=== PATIENT | female | born 1955 | race Caucasian/White ===

== ENCOUNTER 2023-11-09 15:00 | Outpatient (RCR) | payer MEDICARE, SELFPAY | END 2023-12-08 08:20 | disposition home or self-care (01) | LOC: HO.PTCHIC 15:00 | PROVIDERS: PCP Internal Medicine; Visit Provider Internal Medicine | DX: M05.79 Rheumatoid arthritis with rheumatoid factor of multiple sites without organ or systems involvement (principal) | CPT/HCPCS: 97110; 97112; 97162 ==

== ENCOUNTER 2025-05-29 09:48 | Inpatient (IN) | payer MEDICARE, SELFPAY ==
--- NOTE | ~2025-05-29 | XR_ITS ---
EXAMINATION: XR CHEST CLINICAL INFORMATION: pneumonia COMPARISON: X-ray 08/30/2024 TECHNIQUE: Frontal view of the chest was obtained. FINDINGS: Cardiomediastinal silhouette is normal. Redemonstrated hiatal hernia. Multifocal patchy opacities in the left lung, improved from previous. No significant effusion. No pneumothorax. Multilevel thoracolumbar spondylosis. XR/XR chest 1V IMPRESSION: Improving multifocal pneumonia. Electronically signed by: Angel Coronel MD 06/01/2025 07:53 AM EST
--- NOTE | ~2025-05-29 | XR_ITS ---
EXAMINATION: XR CHEST CLINICAL INFORMATION: hypoxia COMPARISON: May 29, 2025. TECHNIQUE: Frontal view of the chest was obtained. FINDINGS: Pulmonary reticular nodular pattern with the multifocal patchy opacities confluent in the left lung. No pneumothorax. No gross perfusion. Heart silhouette size is normal with a hiatal hernia, moderate size. Multilevel thoracolumbar spondylosis. Degenerative changes in the shoulders. XR/XR chest 1V IMPRESSION: Persistent multifocal pneumonia. Electronically signed by: Remington Barrios MD 05/30/2025 10:28 AM [facility]
--- NOTE | ~2025-05-29 | CT_ITS ---
EXAMINATION: CT ANGIOGRAM CHEST CLINICAL INFORMATION: left pleuritic chest pain, elevated dimer COMPARISON: September 21, 2018 TECHNIQUE: Multiple axial images were obtained through the chest after the administration of 85 mL of Omnipaque 350 intravenous contrast. Extensive vascular post-processing including two-dimensional and three-dimensional reformatted images were created and reviewed on an independent workstation. This CT examination was performed using dose optimization techniques as appropriate, variously including the following: *Automated exposure control *Adjustment of mA and/or kV according to patient size (this includes techniques or standardized protocols for targeted exams where dose is matched to indication/reason for exam; i.e. extremities or head) *Use of iterative reconstruction technique FINDINGS: QUALITY OF STUDY/CONTRAST BOLUS: Adequate PULMONARY ARTERIES: No filling defects are identified in the pulmonary arteries. THORACIC AORTA: Mild calcification is present in the arch. There is no dissection or aneurysm. LUNGS AND PLEURA: There are mild changes of emphysema. The left lung demonstrates interlobular septal thickening as well as diffuse patchy airspace opacities throughout the left lung. The right lung demonstrates groundglass density in the dependent right lower lobe posteriorly consistent with atelectasis. However, there are also a few areas of reticular and airspace patchy opacities in the right lower lobe and minimally within the right middle lobe, anteriorly. Trace left pleural effusion or pleural thickening is present. MEDIASTINUM: Sliding hiatal hernia has increased in size and now involves the entire stomach fundus and a small portion of the stomach body. CORONARY ARTERY CALCIFICATION: Present CHEST WALL/AXILLA: No axillary or internal mammary lymphadenopathy. UPPER ABDOMEN: Unremarkable BONES: Mild multilevel degenerative changes are present in the imaged spine. There is a vertebral hemangioma within T10. There are moderate degenerative changes of the sternoclavicular joints. CT/CT angio chest PE protocol IMPRESSION: Multifocal pneumonia is most pronounced throughout the left lung with mild involvement of the right lower lobe and minimal involvement of the right middle lobe. There is a small left parapneumonic effusion. There are no filling defects to suggest underlying pulmonary embolus. There is a moderate size sliding hiatal hernia. Fleischner guidelines were followed. Electronically signed by: Gulshan Andrews MD 05/29/2025 02:21 PM [facility]
--- NOTE | ~2025-05-29 | XR_ITS ---
EXAMINATION: XR ABDOMEN KUB CLINICAL INDICATION: ?constipation on chronic opioids COMPARISON: None available. TECHNIQUE: AP supine view of the abdomen. FINDINGS: Nonobstructive bowel gas pattern. Small-moderate volume stool in the colon. No gross pneumoperitoneum, dilation limited on the supine view. Curvilinear calcification projected over the lateral aspect of right upper abdomen in the left upper abdomen, of uncertain etiology. Calcific densities projected the pelvis, appearing chronic. There are radiodense densities projected over the pelvis, which may be overlying the patient. Dextroconvex scoliosis. Multilevel thoracolumbar spondylosis. XR/XR KUB IMPRESSION: Nonobstructive bowel gas pattern. Small-moderate colonic stool burden. Multiple calcifications project over the abdomen, as detailed above. Electronically signed by: Angel Coronel MD 05/29/2025 11:51 AM [facility]
--- NOTE | ~2025-05-29 | XR_ITS ---
EXAMINATION: XR CHEST CLINICAL INFORMATION: hypoxic COMPARISON: August 16, 2018. TECHNIQUE: PA and lateral views FINDINGS: Pulmonary reticular nodular pattern. Linear and patchy opacity, left hemithorax. Blunting of the left costophrenic angle. No pneumothorax. Cardiomediastinal silhouette size is mildly prominent. Calcified plaque aortic arch. Multilevel spondylosis, thoracolumbar spine.. XR/XR chest 2V IMPRESSION: Acute on chronic airspace disease. Superimposed malignancy cannot be excluded. Electronically signed by: Remington Barrios MD 05/29/2025 11:04 AM [facility]
--- NOTE | 2025-05-29 10:02 | ED.GENADULT ---
HPI - General Adult General Chief complaint: Dyspnea Stated complaint: UC sent here for low O2, dehydration Time Seen by Provider: 05/29/25 11:02 Source: patient and family Mode of arrival: ambulatory Limitations: no limitations History of Present Illness ED Provider: ISI MODI PA-C HPI narrative: 69 year old female with pmhx significant for OA, RA managed w/ methadone and oxycodone, COPD no on supplemental O2 at baseline - follows with pulmonology at [facility], presents tot he ED today from Urgent Care with her son for concerns of low oxygen levels. Reports diarrhea, vomiting, weakness, fatigue, myalgias over the last 5 days. Her son noticed she seemed confused yesterday - she was reportedly telling family members that he had come to see her however this was not true. When he did go over to the patient's house, he felt she seemed altered. Attributed this to possible dehydration. Patient also reports increased urinary frequency and voiding small amounts. Subjective fevers at home. Taking Tylenol at home - last dose yesterday. Endorses shortness of breath, pleuritic chest pain on the left. No recent travel or long car rides. No hormone use. No hemoptysis, cough, sputum production. Related Data Home Medications ?Medication ?Instructions ?Recorded ?Confirmed albuterol sulfate 2.5 mg/3 mL 2.5 mg inhalation Q6H PRN 05/29/25 05/29/25 (0.083 %) solution for nebulization Shortness Of Breath Or Wheezing amlodipine 5 mg-benazepril 10 mg 1 cap PO BEDTIME 05/29/25 05/29/25 capsule fluticasone fur. 200 mcg-umeclid 1 ea inhalation DAILY 05/29/25 05/29/25 62.5 mcg-vilant 25 mcg inhalat.powder (Trelegy Ellipta) lactulose 10 gram/15 mL oral 30 ml PO DAILY PRN Constipation 05/29/25 05/29/25 solution leflunomide 20 mg tablet 20 mg PO BEDTIME 05/29/25 05/29/25 methadone 10 mg tablet 10 mg PO BID@0900,1500 05/29/25 05/29/25 methadone 10 mg tablet 30 mg PO BEDTIME 05/29/25 05/29/25 methylphenidate HCl 20 mg tablet 20 mg PO TID@0800,1130,1600 05/29/25 05/29/25 metoclopramide HCl 10 mg tablet 20 mg PO BID 05/29/25 05/29/25 omeprazole 40 mg capsule,delayed 40 mg PO DAILY@0630 05/29/25 05/29/25 release oxycodone 30 mg tablet 60 mg PO 5XD PRN Pain 05/29/25 05/29/25 Allergies Allergy/AdvReac Type Severity Reaction Status Date / Time diltiazem (DILTIAZEM) Allergy Unknown [place] Verified 05/29/25 10:06 famotidine (From PEPCID) Allergy Unknown HEARTBURN Verified 05/29/25 10:06 verapamil (VERAPAMIL) Allergy Unknown ANGIOEDEMA Verified 05/29/25 10:06 tramadol (From ULTRAM) AdvReac Unknown VOMITING Verified 05/29/25 10:06 Review of Systems Review of Systems: Yes all other systems are reviewed and are negative PMFSH Past Medical History Attestation statement: The following information was validated with the patient. Source: old records reviewed and nursing notes reviewed Medical History Rheumatoid arthritis Social History Social History Household Members: None Housing: House Do you presently have visiting nurse or other home services: No Patient Tobacco Use Status: Former Tobacco user Advance Directives Date on File: 05/29/25 Physical Exam ED Vital Signs: Vital Signs - 24 hr 05/29/25 13:12 05/29/25 13:42 Pulse Rate 98 91 Respiratory Rate 18 Blood Pressure 138/72 128/74 Pulse Oximetry 90 L Oxygen Delivery Method Nasal Cannula Oxygen Flow Rate 1 BMI result Body Mass Index 20.5 tachycardic tachypneic, hypoxic to 76% on RA General: thin appearing Skin: Warm, dry, intact. No rashes or lesions. Head: Normocephalic, atraumatic. EENT: Hearing is intact b/l. Conjunctiva clear. Sclera is anicteric. PERRLA. EOM intact. Moist mucous membranes.? Neck: Supple without LAD Cardiac: Chest wall symmetric. RRR Lungs: Normal respiratory effort without accessory muscle use. lung sounds diminished but clear throughout Abdomen: Soft, non-tender, non-distended. No rebound tenderness or guarding. Positive BS x4. Back: No midline spinous or paraspinal tenderness. No step off deformity. Ext: no pitting edema, no calf tenderness b/l. Neuro: AOx3. Normal speech. NIH 0. AOX3. Ambulating with steady gait. Psych: Appropriate mood and affect. Responds appropriately to questions. Course Course Course Narrative: This is a rapid medical exam performed by Loretta Calix NP: Additional HPI, ROS, PE not included below will be deferred to primary provider. Patient is a 69y/o F with pmhx of COPD, states baseline O2 is 88%, referred from urgent care for hypoxia, O2 sats in the 80's. Patient reports shortness of breath/flu like sxs since Wednesday. Has a nebulizer but doesn't know how to use it. 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 Plan: EKG, viral serology, labs, CXR Reevaluation(s) Reevaluation #1: CBC without leukocytosis. H and H stable. Chemistry without acute electrolyte abnormality requiring intervention. Hypercarbic, secondary to COPD. liver and renal function wnl. ammonia wnl. trop wnl. negative covid/flu/rsv. Chest x-ray showing acute on chronic airspace disease, superimposed malignancy can not be excluded. Her D-dimer is elevated to 799 which is well over age adjusted cut off. CTA is negative for PE, shows multifocal pneumonia. > patient treated with DuoNeb, Solu-Medrol, ceftriaxone > UA pending > given hypoxic respiratory failure in the setting of multifocal pneumonia and COPD, patient to be admitted to medicine. dr. ellis to place admission orders. Medications Administered Generic Name Dose Route Start Last Admin Trade Name Freq PRN Reason Stop Dose Admin Amlodipine Besylate 5 mg 05/30/25 09:00 05/30/25 09:08 Amlodipine Besylate 5 Mg Tablet PO 5 mg DAILY KEENA Administration Azithromycin 500 mg 05/29/25 16:00 05/29/25 17:41 Azithromycin 500 Mg Tablet PO 500 mg Q24H KEENA Administration Enoxaparin Sodium 40 mg 05/30/25 09:30 05/30/25 09:07 Enoxaparin Sodium 40 Mg/0.4 Ml Syringe SUBCUT 40 mg Q24H KEENA Administration Fluticasone/Umeclidinium/Vilanterol 1 puff 05/30/25 08:00 05/30/25 07:43 Fluticasone/Umeclidinium/Vilanterol 200/62.5 Blst.W.Dev INHALE Not Given RDAILY [facility] Ceftriaxone Sodium 1 gm/ 50 mls @ 100 mls/hr 05/30/25 09:00 05/30/25 09:53 Sodium Chloride IV Infused Q24H KEENA Infusion Lactulose 20 gm 05/29/25 16:02 05/29/25 20:32 Lactulose 20 Gm/30 Ml Solution PO 20 gm DAILY PRN Administration Constipation Lisinopril 10 mg 05/30/25 09:00 05/30/25 09:08 Lisinopril 10 Mg Tablet PO 10 mg DAILY KEENA Administration Methadone HCl 10 mg 05/30/25 09:00 05/30/25 09:07 Methadone Hcl 10 Mg Tablet PO 10 mg BID@0900,1500 KEENA Administration Methadone HCl 30 mg 05/29/25 21:00 05/29/25 20:31 Methadone Hcl 10 Mg Tablet PO 30 mg BEDTIME KEENA Administration Methylphenidate HCl 20 mg 05/30/25 08:00 05/30/25 11:13 Methylphenidate Hcl 10 Mg Tablet PO 20 mg TID@0800,1130,1600 KEENA Administration Methylprednisolone Sodium Succinate 40 mg 05/29/25 23:00 05/30/25 11:13 Methylprednisolone Sod Succ 40 Mg/Ml Vial IVPUSH 40 mg Q12H KEENA Administration Metoclopramide HCl 20 mg 05/29/25 21:00 05/30/25 09:08 Metoclopramide Hcl 10 Mg Tablet PO 20 mg BID KEENA Administration Omeprazole 40 mg 05/30/25 06:30 05/30/25 05:38 Omeprazole 40 Mg Capsule.Dr PO 40 mg DAILY@0630 KEENA Administration Oxycodone HCl 60 mg 05/29/25 16:02 05/29/25 22:46 Oxycodone Hcl Immed Release 15 Mg Tablet PO 60 mg 5XD PRN Administration Pain, Severe (Pain Scale 7-10) Sodium Chloride 3 ml 05/29/25 16:00 05/30/25 09:08 0.9 % Sodium Chloride Flush 3 Ml Syringe IVFLUSH 3 ml QSHIFT KEENA Administration Discontinued Medications Generic Name Dose Route Start Last Admin Trade Name Freq PRN Reason Stop Dose Admin Albuterol/Ipratropium 3 ml 05/29/25 11:18 05/29/25 11:24 Albuterol/Iprat 2.5/0.5mg 3 Ml Ampul.Neb INHALE 05/29/25 11:19 3 ml ONCE ONE Administration Ceftriaxone Sodium 1 gm/ 50 mls @ 100 mls/hr 05/29/25 11:28 05/29/25 12:16 Sodium Chloride IV 05/29/25 11:57 Infused ONCE ONE Infusion Sodium Chloride 1,000 mls @ 999 mls/hr 05/29/25 11:45 05/29/25 12:50 Ns IV 05/29/25 12:45 Infused .Q1H1M KEENA Infusion Sodium Chloride 1,000 mls @ 999 mls/hr 05/29/25 14:15 05/29/25 15:54 Ns IV 05/29/25 15:15 Infused .Q1H1M KEENA Infusion Iohexol 100 ml 05/29/25 13:50 05/29/25 13:51 Iohexol 350 Mg/Ml 100 Ml Infus..Btl IV 05/29/25 13:51 65 ml ONCE ONE Administration Methylprednisolone Sodium Succinate 60 mg 05/29/25 11:28 05/29/25 11:46 Methylprednisolone Sod Succ 125 Mg/2 Ml Vial IVPUSH 05/29/25 11:29 60 mg ONCE ONE Administration Medical Decision Making Medical Decision Making [facility] Narrative: 69 year old female with pmhx significant for OA, RA managed w/ methadone and oxycodone, COPD no on supplemental O2 at baseline - follows with pulmonology at [facility], presents tot he ED today from Urgent Care with her son for concerns of low oxygen levels. On arrival, tachycardic, tachypneic, satting 76% on room air. No obvious respiratory distress, lungs clear but diminished. no signs of fluid overload. Differential diagnosis viral syndrome, pneumonia, pulmonary embolism, COPD, COPD exacerbation, bronchitis, constipation Plan for labs, imaging, breathing tx, re-eval. Differential Diagnosis Differential Diagnoses: The differential diagnosis associated with the presentation includes as above. Admission/Observation Consideration of admission/observation: Escalation of care including admission/observation considered Patient admitted to medicine for management acute hypoxic respiratory failure in the setting of multifocal pneumonia and COPD Consult Healthcare Provider Management of the patient was discussed with: Hospitalist (dr. pearce) Lab Data MDM Lab Attestation statement: I reviewed the patient's lab results. as above. 05/29/25 10:31 05/29/25 10:31 Labs: Lab Results 05/29/25 05/29/25 05/29/25 Range/Units 10:31 11:35 11:42 WBC 9.8 (4.8-10.8) X10*3/uL RBC 4.24 (4.20-5.50) X10*6/uL Hgb 10.1 L (12.0-16.0) g/dl Hct 33.5 L (37.0-47.0) % MCV 79.0 L (80.0-98.0) fL MCH 23.8 L (27.0-33.0) pg MCHC 30.1 L (31.0-35.0) g/dl RDW 17.5 H (11.0-16.0) % Plt Count 377 (160-400) X10*3/uL MPV 9.2 L (9.4-12.3) fL Immature Gran % (Auto) 1.2 H (0.0-0.4) % Neut % (Auto) 69.1 (45-73) % Lymph % (Auto) 14.4 L (20-40) % [place] % (Auto) 14.2 H (2-11) % Eos % (Auto) 0.2 (0-4) % Baso % (Auto) 0.9 (0-2) % Lymph # (Auto) 1.4 (1.2-4.9) X10*3/uL [place] # (Auto) 1.4 H (0.1-1.2) X10*3/uL Eos # (Auto) 0.0 (0.0-0.4) X10*3/uL Baso # (Auto) 0.1 (0.0-0.2) X10*3/uL Abs Immat Gran (auto) 0.12 H (0.00-0.03) X10*3/uL Absolute Neuts (auto) 6.8 (2.0-8.3) x10*3/uL Absolute Nucleated RBC 0.000 (0.0-0.012) X10*3/uL Nucleated RBC % (auto) 0.0 (0.0-0.2) /100WBC PT 16.9 H (11.2-13.5) SEC INR 1.4 H (0.9-1.1) D-Dimer High Sensitivty 799 NG/ML VBG pH 7.44 H (7.32-7.43) VBG pCO2 53 mmHg VBG pO2 64 mmHg VBG HCO3 37 H (22-26) mmol/L VBG O2 Saturation TNP VBG Base Excess 11.6 mmol/L Sodium 136 (135-145) mmol/L Potassium 4.0 (3.3-5.1) mmol/L Chloride 95 L (96-108) mmol/L Carbon Dioxide 33 H (22-29) mmol/L Anion Gap 12 (12-20) BUN 8 L (9-16) mg/dL Creatinine 0.50 (0.5-1.4) mg/dL Estim Creat Clear Calc 85.2 Estimated GFR > 60 Random Glucose 95 (60-115) mg/dL Lactic Acid 1.1 (0.5-2.0) mmol/L Calcium 9.5 (8.4-10.2) mg/dL Magnesium 2.1 (1.6-2.6) mg/dL Iron 8 L (30-160) mcg/dL TIBC 227 L (228-428) mcg/dL % Saturation 4 L (15-50) % Unsat Iron Binding 219 ug/dL Ferritin 215 (10-250) ng/mL Total Bilirubin 0.3 (0.0-1.0) mg/dL AST 36 H (5-31) U/L ALT 18 (0-31) U/L Alkaline Phosphatase 146 H (39-117) U/L Ammonia 19 (13-55) umol/L Troponin I High Sens 4.3 (<3.5-17.0) ng/L Total Protein 7.2 (6.5-8.0) g/dL Albumin 3.8 (3.5-5.0) g/dL Influenza Type A (PCR) NEGATIVE (Negative) Influenza Type B (PCR) NEGATIVE (Negative) RSV RNA Qual (PCR) NEGATIVE (Negative) SARS-CoV-2 RNA (RT-PCR) NEGATIVE (Negative) Independent Interpretation I performed an independent interpretation of an: EKG, Plain X-Ray and CT Scan Interpretation: Chest x-ray without effusion KUB without bowel obstruction CTA chest showing multifocal PNA ekg showing NSR, no acute ischemic changes or st elevations Radiology Impression Discussion of test interpretation with radiology: I have reviewed the radiologist's reading. Radiologist Impression: CT angio chest PE protocol IMPRESSION: Multifocal pneumonia is most pronounced throughout the left lung with mild involvement of the right lower lobe and minimal involvement of the right middle lobe. There is a small left parapneumonic effusion. There are no filling defects to suggest underlying pulmonary embolus. There is a moderate size sliding hiatal hernia. Fleischner guidelines were followed. Electronically signed by: Gulshan Andrews MD 05/29/2025 02:21 PM EST RP Procedure(s): XR KUB Accession Number(s): [id number] cc: NUBIA LOERA MD; Isi Modi PA~ Reason for Exam: ?constipation on chronic opioids EXAMINATION: XR ABDOMEN KUB CLINICAL INDICATION: ?constipation on chronic opioids COMPARISON: None available. TECHNIQUE: AP supine view of the abdomen. FINDINGS: Nonobstructive bowel gas pattern. Small-moderate volume stool in the colon. No gross pneumoperitoneum, dilation limited on the supine view. Curvilinear calcification projected over the lateral aspect of right upper abdomen in the left upper abdomen, of uncertain etiology. Calcific densities projected the pelvis, appearing chronic. There are radiodense densities projected over the pelvis, which may be overlying the patient. Dextroconvex scoliosis. Multilevel thoracolumbar spondylosis. XR/XR KUB IMPRESSION: Nonobstructive bowel gas pattern. Small-moderate colonic stool burden. Multiple calcifications project over the abdomen, as detailed above. Electronically signed by: Angel Coronel MD 05/29/2025 11:51 AM EST RP Procedure(s): XR chest 2V Accession Number(s): [id number] cc: NUBIA LOERA MD; Silvana Calix NP~ Reason for Exam: hypoxic EXAMINATION: XR CHEST CLINICAL INFORMATION: hypoxic COMPARISON: August 16, 2018. TECHNIQUE: PA and lateral views FINDINGS: Pulmonary reticular nodular pattern. Linear and patchy opacity, left hemithorax. Blunting of the left costophrenic angle. No pneumothorax. Cardiomediastinal silhouette size is mildly prominent. Calcified plaque aortic arch. Multilevel spondylosis, thoracolumbar spine.. XR/XR chest 2V IMPRESSION: Acute on chronic airspace disease. Superimposed malignancy cannot be excluded. Electronically signed by: Remington Barrios MD 05/29/2025 11:04 AM EST External Record Review External record reviewed: Inpatient record Prescription Management I considered prescription management with: Antibiotic Chronic Conditions Patient?s care impacted by: Other (COPD) Social Determinants Patient?s care significantly limited by Social Determinants of Health including: Other Social Determinant of Health Critical Care Time Critical Care Time Critical Care Time: Yes Total Critical Care Time: 45 Attestation: Critical care time in the amount of 45 minutes has been provided to the patient in terms of direct patient care, frequent reevaluation, consultation with hospitalist, review and interpretation of medical data and results, and management of potentially life-threatening conditions. This is all outside of any medical procedures. Discharge Plan Discharge Clinical Impression: Acute respiratory failure with hypoxia, Multifocal pneumonia, Sepsis Patient Disposition: Admitted As Inpatient Interventions: Admission Worksheet (ED) Last Done: 05/29/25 17:24 Discharge Date/Time: 05/29/25 19:08
[2025-05-29 10:04] VITALS: BP 139/76; PULSE 107; RESP 22; TEMP 37; O2SAT 76; BMI 20.5
--- NOTE | 2025-05-29 10:05 | ECG_ITS ---
Test Reason : DYSPNEA Blood Pressure : */* mmHG Vent. Rate : 97 BPM Atrial Rate : 97 BPM P-R Int : 106 ms QRS Dur : 92 ms QT Int : 380 ms P-R-T Axes : 55 26 39 degrees QTcB Int : 482 ms Sinus rhythm with short FL Otherwise normal ECG When compared with ECG of 11-Aug-2018 18:51, No significant change was found Referred By: Silvana Calix Electronically Signed By: TRUDI MELARA MD
[2025-05-29 10:37] LABS: MANUAL DIFF FLAG NO
[2025-05-29 10:49] LABS: Hematocrit 33.5 % (37.0-47.0); Hemoglobin 10.1 g/dl (12.0-16.0); INTERNATIONAL NORM RATIO 1.4 (0.9-1.1); Imm Gran Abs Auto 0.12 X10*3/uL (0.00-0.03); Imm Gran Pct Auto 1.2 % (0.0-0.4); Lymphocytes Absolute Auto 1.4 X10*3/uL (1.2-4.9); Mean Corpuscular HGB Conc 30.1 g/dl (31.0-35.0); Mean Corpuscular Hemoglobin 23.8 pg (27.0-33.0); Mean Corpuscular Volume 79.0 fL (80.0-98.0); NRBC Abs Auto 0.000 X10*3/uL (0.0-0.012); NRBC Pct Auto 0.0 /100WBC (0.0-0.2); Platelet Count 377 X10*3/uL (160-400); Prothrombin Time 16.9 SEC (11.2-13.5); Red Blood Count 4.24 X10*6/uL (4.20-5.50); White Blood Count 9.8 X10*3/uL (4.8-10.8)
[2025-05-29 10:53] VITALS: O2SAT 92
[2025-05-29 10:57] LABS: Alanine Aminotransferase 18 U/L (0-31); Albumin Level 3.8 g/dL (3.5-5.0); Alkaline Phosphatase 146 U/L (39-117); Anion Gap 12 (12-20); Aspartate Amino Transferase 36 U/L (5-31); Blood Urea Nitrogen 8 mg/dL (9-16); Calcium 9.5 mg/dL (8.4-10.2); Carbon Dioxide 33 mmol/L (22-29); Chloride 95 mmol/L (96-108); Creatinine Clr Calc Pharmacy 85.2; Estimated Glomerular Filt Rate > 60; Magnesium 2.1 mg/dL (1.6-2.6); Potassium 4.0 mmol/L (3.3-5.1); Sodium 136 mmol/L (135-145); Total Protein 7.2 g/dL (6.5-8.0)
[2025-05-29 11:03] LABS: Troponin-I High Sensitivity 4.3 ng/L (<3.5-17.0)
[2025-05-29 11:17] LABS: Resp Syncy Virus RNA Qual PCR NEGATIVE (Negative); SARS COV2 PCR INHOUSE NEGATIVE (Negative)
[2025-05-29 11:24] VITALS: PULSE 90; RESP 15; O2SAT 95
[2025-05-29] MEDS: Albuterol/Iprat 2.5/0.5MG 3 ML AMPUL.NEB INHALE (11:24)
[2025-05-29 11:47] LABS: Venous Blood Gas Refer to POC result
[2025-05-29 11:48] LABS: VBG HCO3 37 mmol/L (22-26)
[2025-05-29 11:54] LABS: Ammonia 19 umol/L (13-55)
--- OUTSIDE RECORDS SUMMARY | 2025-05-29 12:13 | XMS_ITS | Patient Health Record ---
Author Organization [facility] [address] K[address] Address [address] [place] [address] Care Team Providers Care Mesh Worker Name Role Phone Annmarie BRUCE, Khang Primary Care Provider UnavailKristen Davis Unavailable [phone] Allergies Allergen (clinical drug ingredient) Drug/Non Drug Allergy documented on EMR Reaction Allergy Type Onset Date Status amoxicillin / clavulanate Augmentin Unknown Drug Allergy Active famotidine Pepcid Heartburn Drug Allergy Active tramadol Ultram vomiting Drug Allergy Active verapamil Verapamil Unknown Drug Allergy Active Reason For Referral No Information Medications Medication SIG (Take, Route, Frequency, Duration) Notes Start Date End Date Status oxyCODONE HCl 30 MG 0.5 tablet as needed Orally every 6 hrs PRN Active amLODIPine Besylate 10 MG 1 tablet Orall y Once a day Not-Taking Metoclopramide HCl A ctive Ritalin 20 MG 1 tablet on an empty stomach Orally Twice a day Active Methylphenidate Acti ve Lactulose Active Leflunomide Active amLODIPine Benzoate 1 MG/ML 5 mL Orally Once a day Active Methadone HCl Active Immunizations Vaccine Route Administration Date Status Comme nts Influenza Unknown 03/19/2024 Administered Influenza Unknown 03/22/2025 Administered COVID-19 Moderna Vaccine Unknown 11/16/2021 Administered 2020 unsure dates Social History Tobacco Use: Social History Observation Description Date Details (start date - stop date) Never Smoker NA - NA Alcohol Screen Question Answer Notes Did you have a drink containing alcohol in the p ast year? No Points 0 Interpretation Negative Tobacco use other than smoking: Question Answer Notes Are you an other tobacco user? No Tobacco Control (Standard) Question Answer Notes Tobacco use: Nonsmoker AUDIT-C (Standard) Question Answer Notes Did you have a drink containing alcohol in the p ast year? No Points 0 Interpretation Negative Problems Problem Type SNOMED Code ICD Code Onset Dates Problem Status W/U Status Risk Notes Problem Plantar wart (41364243) Plantar wart (B07.0) Active confirmed Problem Pressure injury of right foot stage I (disorder) (3684700309217 02) Pressure injury of right foot, stage 1 (L89.891) Active confirmed Vital Signs Blood pressure diastolic 80 mm Hg 05/07/2025 Height 5ft1.5in in 05/07/2025 Blood pressure systolic 125 mm Hg 05/07/2025 Weight 110 lbs 05/07/2025 BMI 20.45 kg/m2 05/07/2025 Procedures Procedure Date Ordered Date Performed Result Body Sit e 11230-[place] Destruction, 1-14 02/08/2025 N/A 50581- Debride <25 sq cm 05/07/2025 N/A 70001 I&D ABSCESS- SIMPLE,SINGLE 05/07/2025 N/A Encounters Encounter Location Date Provider Diagnosis [facility] [address] [address] 02/08/2025 Kristen Black Left foot pain M79.6 72 and Plantar wart B07.0 [facility] [address] [address] 05/07/2025 Kristen Black Onychomycosis B35.1 ; Metatarsalgia, right foot M77.41 ; Pain in right toe(s) M79.674 ; Pain in left toe(s) M79.675 ; Pressure injury of right foot, stage 1 L89.891 ; Pain in right foot M79.671 ; Pain in right ankle and joints of right foot M25.571 ; Bursitis of intermetatarsal bursa of right foot M77.51 ; Atrophic plantar fat pad L90.9 and Subungual abscess of toe of right foot L03.031 Assessments Encounter Date Diagnosis (ICD Code) Assessment Notes Treatment Notes Treatment Clinical Notes Section Notes 02/08/2025 Left foot pain (ICD-10 - M79.672) 05/07/2025 Metatarsalgia, right foot (ICD-10 - M77.41) 05/07/2025 Onychomycosis (ICD-10 - B35.1) 05/07/2025 Pain in right toe(s) (ICD-10 - M79.674) 02/08/2025 Plantar wart (ICD-10 - B07.0) 05/07/2025 Pain in left toe(s) (ICD-10 - M79.675) 05/07/2025 Pressure injury of right foot, stage 1 (ICD-10 - L89.891) Patient Educated with: WOUND CARE INSTRUCTIONS. pdf (WOUND CARE INSTRUCTIONS. pdf) 05/07/2025 Pain in right foot (ICD-10 - M79.671) 05/07/2025 Pain in right ankle and joints of right foot (ICD-10 - M25.571) 05/07/2025 Bursitis of intermetatarsal bursa of right foot (ICD-10 - M77.51) 05/07/2025 Atrophic plantar fat pad (ICD-10 - L90.9) 05/07/2025 Subungual abscess of toe of right foot (ICD-10 - L03.031) Plan Of Treatment Pending Test Test Name Order Date X ray : Foot, right 3V 05/19/2022 05126-[place] Destruction, 1-14 02/08/2025 06385- Debride <25 sq cm 05/07/2025 30460 I&D ABSCESS- SIMPLE,SINGLE 025 Next Appt Details Provider Name:Kristen Meza , 05/30/2025 01:45:00 PM, 1982 [facility], [place], [address], Insurance Providers Payer Name Payer Address Payer Phone Subscriber Number Group Number Insured Name Patient Relationship to Insured Coverage Start Date Coverage End Date [employer] [place] [employer]age [facility] [address] [place] [address] [id number] Lilliana Ma Self - patient is the insured Medical (General) History Medical History History ICD Code Arthritis - Rheumatoid Back,Hip,and Knee pain Cataracts Fibromyalgia High blood pressure Lung disease Numbness Sciatica Psoriasis Measles Chicken pox Joint implants/screws Rheumatoid arthritis with rh eumatoid factor of right ankle and foot without organ or systems involvement M05.771 Other hammer toe(s) (acquired), right fo ot M20.41 Arthritis of joint of lesser toe, right M19.071 Surgical History Surgery Date(Month/Year) Hand Surgery foot surgery throat surgery Met Head resection 4th right, Ten/[facility] 10/28/2022
[2025-05-29 13:12] VITALS: BP 138/72; PULSE 98; RESP 18; O2SAT 90
[2025-05-29 13:27] LABS: D Dimer High Sensitivity 799 NG/ML
[2025-05-29 13:42] VITALS: BP 128/74; PULSE 91
[2025-05-29] MEDS: iohexoL 350 MG/ML 100 ML INFUS..BTL IV (13:51)
--- NOTE | 2025-05-29 15:18 | PM.IMHP ---
History of Present Illness Date of Service: 05/29/25 Chief Complaint: sob 69F PMH rheumatoid arthritis, COPD, history of boop, hypertension, chronic pain on methadone presented with shortness of breath and hypoxia. Patient states for about 4 days has been having flu-like symptoms with nausea vomiting diarrhea shortness of breath and dry cough, reports subjective fever and chills. Denies sick contacts. Went to urgent care and found to have hypoxia of 80% on room air, patient does not use oxygen at home. In ED noted to be hypoxic to 78% on room air. CT of chest with bilateral ground-glass opacities. Review of Systems Review of Systems: Yes all other systems are reviewed and are negative [facility] Medical History (Updated 05/29/25 @ 15:21 by Getachew Anand MD) Rheumatoid arthritis Social History Smoked in Last 30 Days: No Use of substances other than those prescribed or required for medical reasons: No Advance Directives: Yes Advance Directives Information Provided: Yes Advance Directives on File: No Do you have a plan to hurt others: No Plan Meds Allergies Allergy/AdvReac Type Severity Reaction Status Date / Time diltiazem (DILTIAZEM) Allergy Unknown [place] Verified 05/29/25 10:06 famotidine (From PEPCID) Allergy Unknown HEARTBURN Verified 05/29/25 10:06 verapamil (VERAPAMIL) Allergy Unknown ANGIOEDEMA Verified 05/29/25 10:06 tramadol (From ULTRAM) AdvReac Unknown VOMITING Verified 05/29/25 10:06 Active Medications: Current Medications Acetaminophen (Acetaminophen 325 Mg Tablet) 650 mg PO Q6H PRN PRN Reason: Pain, Mild 1-3,fever,headache Albuterol/Ipratropium (Albuterol/Iprat 2.5/0.5mg 3 Ml Ampul.Neb) 3 ml INHALE RQ4H WHILE AWAKE PRN PRN Reason: sob Azithromycin (Azithromycin 500 Mg Tablet) 500 mg PO Q24H KEENA Calcium Carbonate (Calcium Carbonate 750 Mg Tab.Chew) 750 mg PO Q4H PRN PRN Reason: Heartburn Enoxaparin Sodium (Enoxaparin Sodium 40 Mg/0.4 Ml Syringe) 40 mg SUBCUT Q24H KEENA Ceftriaxone Sodium 1 gm/ (Sodium Chloride) 50 mls @ 100 mls/hr IV Q24H KEENA Magnesium Hydroxide (Milk Of Magnesia 30 Ml Oral.Susp) 30 ml PO DAILY PRN PRN Reason: Constipation Melatonin (Melatonin 3 Mg Tablet) 6 mg PO BEDTIME PRN PRN Reason: Insomnia Methylprednisolone Sodium Succinate (Methylprednisolone Sod Succ 40 Mg/Ml Vial) 40 mg IVPUSH Q12H KEENA Sodium Chloride (0.9 % Sodium Chloride Flush 3 Ml Syringe) 3 ml IVFLUSH QSHIFT [facility] Home Medications ?Medication ?Instructions ?Recorded ?Confirmed ?Last Taken ?Type albuterol sulfate 2.5 mg/3 mL 2.5 mg inhalation Q6H PRN 05/29/25 Unknown History (0.083 %) solution for nebulization Shortness Of Breath Or Wheezing amlodipine 5 mg-benazepril 10 mg 1 cap PO DAILY 05/29/25 Unknown History capsule fluticasone fur. 200 mcg-umeclid 1 ea inhalation DAILY 05/29/25 Unknown History 62.5 mcg-vilant 25 mcg inhalat.powder (Trelegy Ellipta) lactulose 10 gram/15 mL oral 30 ml PO DAILY PRN Constipation 05/29/25 Unknown History solution leflunomide 20 mg tablet 20 mg PO DAILY 05/29/25 Unknown History methadone 10 mg tablet 15 mg PO BID@0900,1500 05/29/25 Unknown History methadone 10 mg tablet 30 mg PO BEDTIME 05/29/25 Unknown History methylphenidate HCl 20 mg tablet 20 mg PO TID 05/29/25 Unknown History metoclopramide HCl 10 mg tablet 20 mg PO BID 05/29/25 Unknown History omeprazole 40 mg capsule,delayed 40 mg PO DAILY 05/29/25 Unknown History release oxycodone 30 mg tablet 60 mg PO 5XD PRN Pain 05/29/25 Unknown History Physical Exam Vital Signs and Narrative: Vital Signs: Last Vital Signs Temp 98.6 F 05/29/25 10:04 Pulse 91 05/29/25 13:42 Resp 18 05/29/25 13:12 BP 128/74 05/29/25 13:42 Pulse Ox 90 L 05/29/25 13:12 O2 Del Method Nasal Cannula 05/29/25 13:12 O2 Flow Rate 1 05/29/25 13:12 BMI result Body Mass Index 20.5 General: AO X 3, frail, ill-appearing, dyspneic Resp: Poor air movement in crackles bilateral, accessory muscles used CVS: S1,S2, tachy GI: soft, non tender, non distended Neuro: motor grossly intact, alert Psych: Anxious affect, appropriate insight Results Labs 05/29/25 10:31 05/29/25 10:31 Labs: Laboratory Results - last 24 hr 05/29/25 05/29/25 05/29/25 10:31 11:35 11:42 MCV 79.0 L MCH 23.8 L MCHC 30.1 L RDW 17.5 H Plt Count 377 MPV 9.2 L Immature Gran % (Auto) 1.2 H Neut % (Auto) 69.1 Lymph % (Auto) 14.4 L [place] % (Auto) 14.2 H Eos % (Auto) 0.2 Baso % (Auto) 0.9 Lymph # (Auto) 1.4 [place] # (Auto) 1.4 H Eos # (Auto) 0.0 Baso # (Auto) 0.1 Abs Immat Gran (auto) 0.12 H Absolute Neuts (auto) 6.8 Absolute Nucleated RBC 0.000 Nucleated RBC % (auto) 0.0 PT 16.9 H INR 1.4 H D-Dimer High Sensitivty 799 VBG pH 7.44 H VBG pCO2 53 VBG pO2 64 VBG HCO3 37 H VBG O2 Saturation TNP VBG Base Excess 11.6 Anion Gap 12 Estim Creat Clear Calc 85.2 Estimated GFR > 60 Random Glucose 95 Lactic Acid 1.1 Calcium 9.5 Magnesium 2.1 Total Bilirubin 0.3 AST 36 H ALT 18 Alkaline Phosphatase 146 H Ammonia 19 Troponin I High Sens 4.3 Total Protein 7.2 Albumin 3.8 Influenza Type A (PCR) NEGATIVE Influenza Type B (PCR) NEGATIVE RSV RNA Qual (PCR) NEGATIVE SARS-CoV-2 RNA (RT-PCR) NEGATIVE Imaging Radiologist's Impressions: Impressions Chest X-Ray 05/29/25 10:55 IMPRESSION: Acute on chronic airspace disease. Superimposed malignancy cannot be excluded. Electronically signed by: Remington Barrios MD 05/29/2025 11:04 AM [facility] X-Ray 05/29/25 11:39 IMPRESSION: Nonobstructive bowel gas pattern. Small-moderate colonic stool burden. Multiple calcifications project over the abdomen, as detailed above. Electronically signed by: Angel Coronel MD 05/29/2025 11:51 AM EST RP Chest CTA 05/29/25 13:51 IMPRESSION: Multifocal pneumonia is most pronounced throughout the left lung with mild involvement of the right lower lobe and minimal involvement of the right middle lobe. There is a small left parapneumonic effusion. There are no filling defects to suggest underlying pulmonary embolus. There is a moderate size sliding hiatal hernia. Fleischner guidelines were followed. Electronically signed by: Gulshan Andrews MD 05/29/2025 02:21 PM EST RP Assessment and Plan (1) Rheumatoid arthritis: Status: Acute Plan 69F PMH rheumatoid arthritis, COPD, history of boop, hypertension, chronic pain on methadone presented with shortness of breath and hypoxia Acute hypoxic respiratory failure due to multifocal pneumonia -community-acquired Ceftriaxone azithromycin, check viral panel, follow up cultures Pulmonary eval COPD with acute decompensation IV Solu-Medrol, DuoNebs Rheumatoid arthritis with chronic pain Continue oxycodone and methadone Hypertension Amlodipine, benazepril DVT prophylaxis Lovenox DNR/DNI Given severity of hypoxia and significant CT findings expected require at least 2 midnights inpatient Quality Stroke Does the patient have a stroke diagnosis?: No VTE Prior VTE?: No VTE Risk Level:: Medical - moderate - high VTE Device Contraindication: Treatment Not Indicated VTE Drug Contraindication: N/A - Med Ordered
--- NOTE | 2025-05-29 15:51 | PHA.MEDREC ---
Addendum entered by Shila Mcclendon 05/29/25 16:04: Pt takes her Methylpenidate 20mg tabs 1 TID@0800,1130,1600. Addendum entered by Mónica Forrest RPh 05/29/25 16:01: [facility] by [facility] Original Note: Pharmacy Consult ? Medication Reconciliation Pharmacy has completed the medication reconciliation. Spoke with pt and she confirmed her medications. pt takes Methadone 10mg (1 tab) AM, Afternoon and 3 tabs at bedtime instead of as written 15mg (1.5 tabs) AM, Afternoon and 3 tabs at bedtime; pt states she does not like cutting the tabs in half .
--- NOTE | 2025-05-29 16:29 | HO.NURTONUR ---
Report given to overflow, awaiting transport
--- NOTE | 2025-05-29 17:28 | HO.NURTONUR ---
Pt arrived from c/o SOB and hypoxic to 70s%; in ED pt between 90-93% on 1-2L O2, Hx COPD (no home O2), HTN. Workup pos for pneumonia, given ceftriaxon, azithro, and solumedrol. Pt aaox4, ambulates x1 assist.
[2025-05-29] MEDS: 0.9 % Sodium Chloride Flush 3 ML SYRINGE IVFLUSH ×2 (17:42→20:33)
[2025-05-29 19:11] VITALS: BMI 21.2
[2025-05-29 19:12] VITALS: BP 149/75; PULSE 111; RESP 18; TEMP 36.4; O2SAT 93
[2025-05-29 19:35] LABS: Erythrocyte Sedimentation Rate 71 MM/HR (0-20)
[2025-05-29] MEDS: oxyCODONE HCl Immed Release 15 MG TABLET 60 MG PO (22:46)
[2025-05-29 23:04] LABS: Appearance Urine Clear; Glucose Urine UA Negative (Negative); PH 6.5 (5.0-9.0); Specific Gravity - Urine 1.015 (1.005-1.025)
[2025-05-30] VITALS (9 sets, daily range): BP systolic 134–150; BP diastolic 65–84; PULSE 63–114; RESP 18–20; TEMP 36–36.9; O2SAT 76–95
[2025-05-30 02:05] LABS: Iron 8 mcg/dL (30-160); Percent Iron Saturation 4 % (15-50); Total Iron Binding Capacity 227 mcg/dL (228-428); Unsaturated Iron Binding 219 ug/dL
[2025-05-30 02:19] LABS: Ferritin 215 ng/mL (10-250)
--- NOTE | 2025-05-30 07:51 | PC.NURSE ---
Patient ambulated up to bathroom on room air, after return from bathroom patient c/o SOB, increased RR (22), increased HR (115), spO2 76% on room air. Patient talking in complete sentences. Patient placed on 2L, encouraged to take slow, deep breath, spO2 increased to 93% on 2L, HR 107, RR 20.
[2025-05-30 08:31] LABS: MRSA Nasal PCR NEGATIVE (Negative); SA Nasal PCR NEGATIVE (Negative)
--- NOTE | 2025-05-30 08:45 | P.CONPL_ITS ---
History of Present Illness History of Present Illness Consult date: 05/30/25 Chief complaint: hypoxia, copd, pna Narrative: This is an inpatient pulmonary consultation. The patient is a 69F PMH rheumatoid arthritis, COPD, history of boop/[employer], hypertension, chronic pain on methadone presented with shortness of breath and hypoxia. Patient states for about 4 days has been having flu-like symptoms with nausea vomiting diarrhea shortness of breath and dry cough, reports subjective fever and chills. Denies sick contacts. Went to urgent care and found to have hypoxia of 80% on room air, patient does not use oxygen at home. In ED noted to be hypoxic to 78% on room air. CT of chest with bilateral ground-glass opacities. I did personally review the CT scan demonstrating significant airspace disease in the left hemithorax and some on the right lower lobe area. Appears to be some mucus burden in the airways. The patient is still continues to be on oxygen and desaturates quickly when ambulating on room air. The patient was given a Nirmala and I did teach how to use it. She start using it specially after using her nebulizer treatments. Will start her on albuterol with Mucomyst to help her with mucus clearance and chest PT as this is a big issue for her. We will try to get a sputum culture also awaiting for the blood work to assess for infectious versus noninfectious pneumonias. If is still unclear if the patient continues to have significant disease then bronchoscopy would be warranted. Review of Systems 2 Constitutional: Constitutional: Denies fever(s) Eyes: Eyes: Reports no additional eye complaints ENT: Reports system reviewed and no additional complaints, except as documented Cardiovascular: Cardiovascular: Denies chest pain and Reports dyspnea on exertion Respiratory: Respiratory: Reports chest congestion, Reports cough, Reports dyspnea on exertion and Denies wheezing Gastrointestinal: Gastrointestinal: Reports as per HPI Musculoskeletal: Musculoskeletal: Reports myalgias, Reports deformity, Reports arthralgias and Reports limited range of motion Neurologic: Reports system reviewed and no additional complaints, except as documented Endocrine: Endocrine: Reports no additional endocrine complaints Hematologic/Lymphatic: Hematologic/Lymphatic: Reports no additional hematologic/lymphatic complaints Allergic/Immunologic: Allergic/Immunologic: Denies wheezing PMFSH Past Medical History Medical History (Updated 05/30/25 @ 08:50 by James Nelson MD) Rheumatoid arthritis Social History Social History Household Members: None Housing: House Do you presently have visiting nurse or other home services: No Patient Tobacco Use Status: Former Tobacco user Advance Directives Date on File: 05/29/25 Meds Allergies Allergy/AdvReac Type Severity Reaction Status Date / Time diltiazem (DILTIAZEM) Allergy Unknown [place] Verified 05/29/25 10:06 famotidine (From PEPCID) Allergy Unknown HEARTBURN Verified 05/29/25 10:06 verapamil (VERAPAMIL) Allergy Unknown ANGIOEDEMA Verified 05/29/25 10:06 tramadol (From ULTRAM) AdvReac Unknown VOMITING Verified 05/29/25 10:06 Active Medications: Current Medications Acetaminophen (Acetaminophen 325 Mg Tablet) 650 mg PO Q6H PRN PRN Reason: Pain, Mild 1-3,fever,headache Acetylcysteine (Acetylcysteine 10 % 400 Mg/4 Ml Vial) 400 mg INHALE RBID KEENA Albuterol/Ipratropium (Albuterol/Iprat 2.5/0.5mg 3 Ml Ampul.Neb) 3 ml INHALE RQ4H WHILE AWAKE PRN PRN Reason: sob Albuterol/Ipratropium (Albuterol/Iprat 2.5/0.5mg 3 Ml Ampul.Neb) 3 ml INHALE RBID KEENA Amlodipine Besylate (Amlodipine Besylate 5 Mg Tablet) 5 mg PO DAILY REPLACED BY [facility] Azithromycin (Azithromycin 500 Mg Tablet) 500 mg PO Q24H REPLACED BY [facility] Last Admin: 05/29/25 17:41 Dose: 500 mg Calcium Carbonate (Calcium Carbonate 750 Mg Tab.Chew) 750 mg PO Q4H PRN PRN Reason: Heartburn Enoxaparin Sodium (Enoxaparin Sodium 40 Mg/0.4 Ml Syringe) 40 mg SUBCUT Q24H REPLACED BY [facility] Fluticasone/Umeclidinium/Vilanterol (Fluticasone/Umeclidinium/Vilanterol 200/62.5/25 Blst.W.Dev) 1 puff INHALE RDAILY REPLACED BY [facility] Last Admin: 05/30/25 07:43 Dose: Not Given Ceftriaxone Sodium 1 gm/ (Sodium Chloride) 50 mls @ 100 mls/hr IV Q24H REPLACED BY [facility] Lactulose (Lactulose 20 Gm/30 Ml Solution) 20 gm PO DAILY PRN PRN Reason: Constipation Last Admin: 05/29/25 20:32 Dose: 20 gm Lisinopril (Lisinopril 10 Mg Tablet) 10 mg PO DAILY REPLACED BY [facility] Magnesium Hydroxide (Milk Of Magnesia 30 Ml Oral.Susp) 30 ml PO DAILY PRN PRN Reason: Constipation Melatonin (Melatonin 3 Mg Tablet) 6 mg PO BEDTIME PRN PRN Reason: Insomnia Methadone HCl (Methadone Hcl 10 Mg Tablet) 10 mg PO BID@0900,1500 REPLACED BY [facility] Methadone HCl (Methadone Hcl 10 Mg Tablet) 30 mg PO BEDTIME REPLACED BY [facility] Last Admin: 05/29/25 20:31 Dose: 30 mg Methylphenidate HCl (Methylphenidate Hcl 10 Mg Tablet) 20 mg PO TID@0800,1130,1600 REPLACED BY [facility] Methylprednisolone Sodium Succinate (Methylprednisolone Sod Succ 40 Mg/Ml Vial) 40 mg IVPUSH Q12H REPLACED BY [facility] Last Admin: 05/29/25 22:44 Dose: 40 mg Metoclopramide HCl (Metoclopramide Hcl 10 Mg Tablet) 20 mg PO BID REPLACED BY [facility] Last Admin: 05/29/25 20:31 Dose: 20 mg Omeprazole (Omeprazole 40 Mg Capsule.Dr) 40 mg PO DAILY@0630 REPLACED BY [facility] Last Admin: 05/30/25 05:38 Dose: 40 mg Oxycodone HCl (Oxycodone Hcl Immed Release 15 Mg Tablet) 60 mg PO 5XD PRN PRN Reason: Pain, Severe (Pain Scale 7-10) Last Admin: 05/29/25 22:46 Dose: 60 mg Sodium Chloride (0.9 % Sodium Chloride Flush 3 Ml Syringe) 3 ml IVFLUSH QSHIFT REPLACED BY [facility] Last Admin: 05/29/25 20:33 Dose: 3 ml Home Medications ?Medication ?Instructions ?Recorded ?Confirmed ?Last Taken ?Type albuterol sulfate 2.5 mg/3 mL 2.5 mg inhalation Q6H MA N 05/29/25 05/29/25 Unknown History (0.083 %) solution for nebulization Shortness Of Breat h Or Wheezing amlodipine 5 mg-benazepril 10 mg 1 cap PO BEDTIME 05/1905/29/25 05/29/25 History capsule fluticasone fur. 200 mcg-umeclid 1 ea inhalation DAILY 05/29/25 05/29/25 05/29/25 History 62.5 mcg-vilant 25 mcg inhalat.powder (Trelegy Ellipta) lactulose 10 gram/15 mL oral 30 ml PO DAILY PRN Consti pation 05/29/25 05/29/25 Unknown History solution leflunomide 20 mg tablet 20 mg PO BEDTIME 05/29/2505/29/25 History methadone 10 mg tablet 10 mg PO BID@0900,1500 05/2905/29/25 05/29/25 History methadone 10 mg tablet 30 mg PO BEDTIME 05/29/2505/28/25 History methylphenidate HCl 20 mg tablet 20 mg PO TID@0800,113 0,1600 05/29/25 05/29/25 05/29/25 History metoclopramide HCl 10 mg tablet 20 mg PO BID 05/29/25 05/29/25 05/29/25 History omeprazole 40 mg capsule,delayed 40 mg PO DAILY@0630 1 07/29/24 05/29/25 05/29/25 History release oxycodone 30 mg tablet 60 mg PO 5XD PRN Pain 05/29/25 Unknown History Physical Exam 2 Vital Signs: Vital Signs: Last Vital Signs Temp 97.6 F 05/30/25 07:50 Pulse 99 05/30/25 07:50 Resp 20 05/30/25 07:50 BP 150/84 H 05/30/25 07:50 Pulse Ox 92 05/30/25 07:50 O2 Del Method Nasal Cannula 05/30/25 07:50 O2 Flow Rate 2 05/30/25 07:50 BMI result Body Mass Index 21.2 Const: General: comfortable HEENT: Head: Yes normocephalic Neck: Neck: Yes supple Chest: Chest palpation & inspection: normal inspection of the chest Resp: Effort & Inspection: normal respiratory effort Auscultation: crackles and diminished lung sounds Cardio: Heart sounds: S1 normal heart sound present and S2 normal heart sound present GI: Palpation (GI): Soft to palpation Skin: General skin exam: no rashes or lesions noted Extrem: General: Yes no clubbing, cyanosis or edema Results Laboratory Findings 05/29/25 10:31 05/29/25 10:31 ABG, PT/INR, D-dimer: PT/INR, D-dimer PT 16.9 SEC (11.2-13.5) H 05/29/25 10:31 INR 1.4 (0.9-1.1) H 05/29/25 10:31 Abnormal lab findings: Abnormal Labs 05/29/25 05/29/25 05/29/25 10:31 11:42 18:43 Hgb 10.1 L Hct 33.5 L MCV 79.0 L MCH 23.8 L MCHC 30.1 L RDW 17.5 H MPV 9.2 L Immature Gran % (Auto) 1.2 H Lymph % (Auto) 14.4 L [place] % (Auto) 14.2 H [place] # (Auto) 1.4 H Abs Immat Gran (auto) 0.12 H ESR 71 H PT 16.9 H INR 1.4 H VBG pH 7.44 H VBG HCO3 37 H Chloride 95 L Carbon Dioxide 33 H BUN 8 L Iron 8 L TIBC 227 L % Saturation 4 L AST 36 H Alkaline Phosphatase 146 H Assessment and Plan (1) Multifocal pneumonia: Status: Acute (2) Acute respiratory failure with hypoxia: Status: Acute (3) Rheumatoid arthritis: Qualifiers: Rheumatoid arthritis location: unspecified site Rheumatoid factor presence: with rheumatoid factor Qualified Code(s): M05.9 - Rheumatoid arthritis with rheumatoid factor, unspecified Status: Acute Plan Continue current abx continue solumedrol Awaiting bloodwork and respiratory pathogen panel start albuterol/mucomyst BID Provided Aerobika for CPT Sputum cx Consider bronchoscopy if no better Procedures Date of Service Date of Service: 05/30/25
[2025-05-30] MEDS: 0.9 % Sodium Chloride Flush 3 ML SYRINGE IVFLUSH ×3 (09:08→20:58)
[2025-05-30 10:33] LABS: Chlamydia pneumoniae PCR Not Detected (Not Detect.); Coronavirus 229E PCR Not Detected (Not Detect.); Coronavirus HKU1 PCR Not Detected (Not Detect.); Coronavirus NL63 PCR Not Detected (Not Detect.); Coronavirus OC43 PCR Not Detected (Not Detect.); RSV PCR Not Detected (Not Detect.); Rhino/Enterovirus PCR Not Detected (Not Detect.)
[2025-05-30 10:55] LABS: SARS-CoV-2 PCR Not Detected (Not Detect.)
[2025-05-30 10:56] LABS: Influenza A H1 PCR Not Detected (Not Detect.); Influenza A H1-2009 PCR Not Detected (Not Detect.); Influenza A H3 PCR Not Detected (Not Detect.)
--- NOTE | 2025-05-30 13:03 | MHC.CM.PN ---
IMM DELIVERED PT LIVES ALONE AND IS FUNCTIONALLY INDEPENDENT. PT HAS A ARMHOLE SEWER WEEKLY. PT HAS A NEBULIZER. + HCP, HAS COPY AT HOME. PCP NUBIA LOERA. DP: HOME, NO SERVICES VS HOME WITH SERVICES? PT'S SON WILL TRANSPORT. CM WILL CONTINUE TO FOLLOW FOR ANY CHANGE TO DC PLAN/NEEDS.
[2025-05-30] MEDS: Sulfamethox/Trimeth 800/160 TABLET 1 TAB PO (13:05)
--- NOTE | 2025-05-30 13:15 | PC.NURSE ---
Patient complaining of feeling hot/cold , skin is moist, tape for IV is having difficulty adhering to skin. Patient is tachycardic, afebrile. Patient denies chest pain or SOB at this time. Provider Negrete aware.
[2025-05-30] MEDS: oxyCODONE HCl Immed Release 15 MG TABLET 60 MG PO ×2 (14:28→22:09)
--- NOTE | 2025-05-30 16:19 | P.PNIM_ITS ---
Subjective Subjective Date of Service: 05/30/25 Interval History: Hypoxic/pneumonia Review of Systems Not much improvement, patient is short of breath with minimal exertion/hypoxic goes into 70s. Physical Exam 2 Exam: Exam: General: AO X 3, frail, ill-appearing, dyspneic Resp: air entry diminshed at bases. CVS: S1,S2, tachy GI: soft, non tender, non distended Neuro: motor grossly intact, alert Psych: Anxious affect, appropriate insight Vital Signs: Vital Signs: Last Vital Signs Temp 96.8 F 05/30/25 15:33 Pulse 103 H 05/30/25 15:33 Resp 19 05/30/25 15:33 BP 139/72 05/30/25 15:33 Pulse Ox 95 05/30/25 15:33 O2 Del Method Nasal Cannula 05/30/25 15:33 O2 Flow Rate 2 05/30/25 15:33 BMI result Body Mass Index 21.2 Objective Data Active Medications Acetaminophen (Acetaminophen 325 Mg Tablet) 650 mg PO Q6H PRN PRN Reason: Pain, Mild 1-3,fever,headache Acetylcysteine (Acetylcysteine 10 % 400 Mg/4 Ml Vial) 400 mg INHALE RBID KEENA Albuterol/Ipratropium (Albuterol/Iprat 2.5/0.5mg 3 Ml Ampul.Neb) 3 ml INHALE RQ4H WHILE AWAKE PRN PRN Reason: sob Albuterol/Ipratropium (Albuterol/Iprat 2.5/0.5mg 3 Ml Ampul.Neb) 3 ml INHALE RBID [facility] Amlodipine Besylate (Amlodipine Besylate 5 Mg Tablet) 5 mg PO DAILY [facility] Last Admin: 05/30/25 09:08 Dose: 5 mg Documented By: TRACEY Calcium Carbonate (Calcium Carbonate 750 Mg Tab.Chew) 750 mg PO Q4H PRN PRN Reason: Heartburn Enoxaparin Sodium (Enoxaparin Sodium 40 Mg/0.4 Ml Syringe) 40 mg SUBCUT Q24H [facility] Last Admin: 05/30/25 09:07 Dose: 40 mg Documented By: TRACEY Fluticasone/Umeclidinium/Vilanterol (Fluticasone/Umeclidinium/Vilanterol 200/62.5/25 Blst.W.Dev) 1 puff INHALE RDAILY [facility] Last Admin: 05/30/25 07:43 Dose: Not Given Documented By: ARTHUR Non-Admin Reason: not available, pharmacy called. Piperacillin Sod/Tazobactam (Sod 3.375 gm/ Sodium Chloride) 50 mls @ 100 mls/hr IV Q6H [facility] Last Infusion: 05/30/25 14:24 Dose: Infused Documented By: TRACEY Lactulose (Lactulose 20 Gm/30 Ml Solution) 20 gm PO DAILY PRN PRN Reason: Constipation Last Admin: 05/29/25 20:32 Dose: 20 gm Documented By: BIB Lisinopril (Lisinopril 10 Mg Tablet) 10 mg PO DAILY [facility] Last Admin: 05/30/25 09:08 Dose: 10 mg Documented By: TRACEY Magnesium Hydroxide (Milk Of Magnesia 30 Ml Oral.Susp) 30 ml PO DAILY PRN PRN Reason: Constipation Melatonin (Melatonin 3 Mg Tablet) 6 mg PO BEDTIME PRN PRN Reason: Insomnia Methadone HCl (Methadone Hcl 10 Mg Tablet) 10 mg PO BID@0900,1500 [facility] Last Admin: 05/30/25 09:07 Dose: 10 mg Documented By: TRACEY Methadone HCl (Methadone Hcl 10 Mg Tablet) 30 mg PO BEDTIME [facility] Last Admin: 05/29/25 20:31 Dose: 30 mg Documented By: BIB Methylphenidate HCl (Methylphenidate Hcl 10 Mg Tablet) 20 mg PO TID@0800,1130,1600 [facility] Last Admin: 05/30/25 11:13 Dose: 20 mg Documented By: TRACEY Methylprednisolone Sodium Succinate (Methylprednisolone Sod Succ 40 Mg/Ml Vial) 40 mg IVPUSH Q12H [facility] Last Admin: 05/30/25 11:13 Dose: 40 mg Documented By: TRACEY Metoclopramide HCl (Metoclopramide Hcl 10 Mg Tablet) 20 mg PO BID [facility] Last Admin: 05/30/25 09:08 Dose: 20 mg Documented By: TRACEY Omeprazole (Omeprazole 40 Mg Capsule.Dr) 40 mg PO DAILY@0630 [facility] Last Admin: 05/30/25 05:38 Dose: 40 mg Documented By: BIB Oxycodone HCl (Oxycodone Hcl Immed Release 15 Mg Tablet) 60 mg PO 5XD PRN PRN Reason: Pain, Severe (Pain Scale 7-10) Last Admin: 05/30/25 14:28 Dose: 60 mg Documented By: TRACEY Sodium Chloride (0.9 % Sodium Chloride Flush 3 Ml Syringe) 3 ml IVFLUSH QSHIFT [facility] Last Admin: 05/30/25 09:08 Dose: 3 ml Documented By: TRACEY Trimethoprim/Sulfamethoxazole (Sulfamethox/Trimeth 800/160 Tablet) 1 tab PO Q12H [facility] Last Admin: 05/30/25 13:05 Dose: 1 tab Documented By: TRACEY Labs 05/29/25 10:31 05/29/25 10:31 Labs: Laboratory Results - last 24 hr 05/29/25 05/29/25 05/29/25 10:31 18:43 19:26 ESR 71 H Hold Purple Top SEE NOTE Iron 8 L TIBC 227 L % Saturation 4 L Unsat Iron Binding 219 Ferritin 215 Urine Color Urine Appearance Urine pH Ur Specific [place] Urine Protein Urine Glucose (UA) Urine Ketones Urine Blood Urine Nitrite Ur Leukocyte Esterase Nasal Screen MRSA (PCR) NEGATIVE Nasal S. aureus Screen NEGATIVE Nasal MRSA/S.aureus Interp SEE NOTE Respiratory Panel Bernal Adenovirus (Rapid PCR) B.pert (TEM-PCR) B.parapertussis DNA PCR C. pneumoniae DNA (PCR) Coronavirus OC43 (PCR) Coronavirus HKU1 (PCR) Coronavirus 229E (PCR) Coronavirus NL63 (PCR) Human Metapneumovir PCR Influenza A (RT-PCR) Influenza A (H1) PCR Influ A (H1/09) PCR Influenza A (H3) PCR Influenza B (RT-PCR) M. pneumoniae (PCR) Parainfluenza 1 (PCR) Parainfluenza 2 (PCR) Parainfluenza 3 (PCR) Parainfluenza 4 (PCR) RSV (PCR) Entero/Rhino (PCR) SARS-CoV-2 RNA (RT-PCR) 05/29/25 05/30/25 22:10 09:05 ESR Hold Purple Top Iron TIBC % Saturation Unsat Iron Binding Ferritin Urine Color Yellow Urine Appearance Clear Urine pH 6.5 Ur Specific [place] 1.015 Urine Protein Trace Urine Glucose (UA) Negative Urine Ketones Negative Urine Blood Negative Urine Nitrite Negative Ur Leukocyte Esterase Negative Nasal Screen MRSA (PCR) Nasal S. aureus Screen Nasal MRSA/S.aureus Interp Respiratory Panel Bernal See Note Adenovirus (Rapid PCR) Not Detected B.pert (TEM-PCR) Not Detected B.parapertussis DNA PCR Not Detected C. pneumoniae DNA (PCR) Not Detected Coronavirus OC43 (PCR) Not Detected Coronavirus HKU1 (PCR) Not Detected Coronavirus 229E (PCR) Not Detected Coronavirus NL63 (PCR) Not Detected Human Metapneumovir PCR Not Detected Influenza A (RT-PCR) Not Detected Influenza A (H1) PCR Not Detected Influ A (H1/09) PCR Not Detected Influenza A (H3) PCR Not Detected Influenza B (RT-PCR) Not Detected M. pneumoniae (PCR) Not Detected Parainfluenza 1 (PCR) Not Detected Parainfluenza 2 (PCR) Not Detected Parainfluenza 3 (PCR) Not Detected Parainfluenza 4 (PCR) Not Detected RSV (PCR) Not Detected Entero/Rhino (PCR) Not Detected SARS-CoV-2 RNA (RT-PCR) Not Detected Microbiology Microbiology Results: Microbiology 05/29/25 10:43 Blood Culture - Preliminary Blood - Venous No growth after 24 hours. 05/29/25 10:31 Blood Culture - Preliminary Blood - Venous No growth after 24 hours. 05/30/25 09:16 Gram Stain - Final Sputum - Expectorated Assessment and Plan (1) Acute respiratory failure with hypoxia: Status: Acute (2) Multifocal pneumonia: Status: Acute Plan 69F PMH rheumatoid arthritis, COPD, history of boop, hypertension, chronic pain on methadone presented with shortness of breath and hypoxia Acute hypoxic respiratory failure due to multifocal pneumonia -community-acquired Ceftriaxone azithromycin, check viral panel, follow up cultures With tapering oxygen patient goes in 70s sats freeman, also short of breath Pulmonary eval COPD with acute decompensation IV Solu-Medrol, DuoNebs Rheumatoid arthritis with chronic pain Continue oxycodone and methadone Hypertension Amlodipine, benazepril DVT prophylaxis Lovenox DNR/DNI Given severity of hypoxia and significant CT findings expected-need oxygen, IV antibiotics, monitor for oxygen, taper oxygen slowly. Quality Stroke Does the patient have a stroke diagnosis?: No VTE Prior VTE?: No VTE Risk Level:: Medical - moderate - high VTE Device Contraindication: Treatment Not Indicated VTE Drug Contraindication: N/A - Med Ordered
[2025-05-30] MEDS: Albuterol/Iprat 2.5/0.5MG 3 ML AMPUL.NEB INHALE (18:52)
[2025-05-30] MEDS: Acetylcysteine 10 % 400 MG/4 ML VIAL INHALE (18:52)
[2025-05-30 22:24] LABS: Proteinase 3 PR3 Antibodies <1.0 AI
[2025-05-31] VITALS (8 sets, daily range): BP systolic 126–163; BP diastolic 67–84; PULSE 87–111; RESP 16–20; TEMP 36–37.9; O2SAT 93–97
[2025-05-31] MEDS: Sulfamethox/Trimeth 800/160 TABLET 1 TAB PO ×3 (00:01→23:36)
[2025-05-31] MEDS: oxyCODONE HCl Immed Release 15 MG TABLET 60 MG PO ×3 (07:34→20:51)
[2025-05-31] MEDS: Fluticasone/Umeclidinium/Vilanterol 200/62.5/25 BLST.W.DEV 1 PUFF INHALE (07:54)
[2025-05-31] MEDS: Albuterol/Iprat 2.5/0.5MG 3 ML AMPUL.NEB INHALE ×2 (07:54→19:47)
[2025-05-31] MEDS: Acetylcysteine 10 % 400 MG/4 ML VIAL INHALE ×2 (07:54→19:47)
--- NOTE | 2025-05-31 08:40 | P.PNPL_ITS ---
Subjective Subjective Date of Service: 05/31/25 Interval history: The patient was seen on exam. Seems to be feeling a little bit better. Which did switch her antibiotics to Zosyn and Bactrim based on her Gram stain showing Gram-positive rods. Still awaiting identification. In the meantime she was started on Mucomyst and was given a flutter valve for CPT. She had been able to clear some of the phlegm out. She is starting to feel better. Denies any pleuritic pain. Hopefully we can wean her off the oxygen. I did personally review her chest x-ray from yesterday demonstrating persistent airspace disease. Objective Data Labs 05/29/25 10:31 05/29/25 10:31 Labs: Laboratory Results - last 24 hr 05/29/25 05/30/25 18:43 09:05 IgG Total 844 IgA Total 168 IgM 97 Proteinase 3 (PR3) Ab <1.0 Myeloperoxidase Ab <1.0 Respiratory Panel Bernal See Note Adenovirus (Rapid PCR) Not Detected B.pert (TEM-PCR) Not Detected B.parapertussis DNA PCR Not Detected C. pneumoniae DNA (PCR) Not Detected Coronavirus OC43 (PCR) Not Detected Coronavirus HKU1 (PCR) Not Detected Coronavirus 229E (PCR) Not Detected Coronavirus NL63 (PCR) Not Detected Human Metapneumovir PCR Not Detected Influenza A (RT-PCR) Not Detected Influenza A (H1) PCR Not Detected Influ A (H1/09) PCR Not Detected Influenza A (H3) PCR Not Detected Influenza B (RT-PCR) Not Detected M. pneumoniae (PCR) Not Detected Parainfluenza 1 (PCR) Not Detected Parainfluenza 2 (PCR) Not Detected Parainfluenza 3 (PCR) Not Detected Parainfluenza 4 (PCR) Not Detected RSV (PCR) Not Detected Entero/Rhino (PCR) Not Detected SARS-CoV-2 RNA (RT-PCR) Not Detected Microbiology Microbiology Results: Microbiology 05/30/25 09:16 Sputum - Expectorated Gram Stain - Final 05/30/25 09:16 Sputum - Expectorated Routine Culture - Preliminary Culture in progress. 05/29/25 10:43 Blood - Venous Blood Culture - Preliminary No growth after 24 hours. 05/29/25 10:31 Blood - Venous Blood Culture - Preliminary No growth after 24 hours. Review of Systems Constitutional: Denies fever(s) Eyes: Reports no additional eye complaints Reports system reviewed and no additional complaints, except as documented Cardiovascular: Denies chest pain and Reports dyspnea on exertion Respiratory: Reports chest congestion, Reports cough, Reports dyspnea on exertion and Denies wheezing Gastrointestinal: Reports as per HPI Musculoskeletal: Reports myalgias, Reports deformity, Reports arthralgias and Reports limited range of motion Reports system reviewed and no additional complaints, except as documented Endocrine: Reports no additional endocrine complaints Hematologic/Lymphatic: Reports no additional hematologic/lymphatic complaints Allergic/Immunologic: Denies wheezing Physical Exam 2 Vital Signs: Vital Signs: Last Vital Signs Temp 100.2 F 05/31/25 07:49 Pulse 93 05/31/25 07:55 Resp 18 05/31/25 07:55 BP 162/84 H 05/31/25 07:49 Pulse Ox 97 05/31/25 07:49 O2 Del Method Nasal Cannula 05/31/25 07:49 O2 Flow Rate 2 05/31/25 07:49 BMI result Body Mass Index 21.2 Const: General: comfortable HEENT: Head: Yes normocephalic Neck: Neck: Yes supple Chest: Chest palpation & inspection: normal inspection of the chest Resp: Effort & Inspection: normal respiratory effort Auscultation: no crackles and diminished lung sounds Cardio: Heart sounds: S1 normal heart sound present and S2 normal heart sound present GI: Palpation (GI): Soft to palpation Skin: General skin exam: no rashes or lesions noted Extrem: General: Yes no clubbing, cyanosis or edema Procedures Date of Service Date of Service: 05/31/25 Assessment and Plan Assessment and plan (1) Acute respiratory failure with hypoxia: Status: Acute (2) Multifocal pneumonia: Status: Acute (3) Rheumatoid arthritis: Status: Acute Plan Continue Zosyn and Bactrim Continue Solu-Medrol Awaiting sputum culture Awaiting blood work Titrate oxygen to maintain a pulse ox above 90% Continue with aerobic on CPT along with Mucomyst twice a day Incentive spirometer she will be provided for deep breathing exercises Repeat chest x-ray tomorrow Time Spent With Patient Time: Total time managing care of this patient today ____ minutes. Progress Note: Quality Stroke Does the patient have a stroke diagnosis?: No
[2025-05-31] MEDS: 0.9 % Sodium Chloride Flush 3 ML SYRINGE IVFLUSH ×3 (08:41→20:52)
--- NOTE | 2025-05-31 15:52 | P.PNIM_ITS ---
Subjective Subjective Date of Service: 05/31/25 Interval History: Hypoxic/pneumonia Review of Systems seems similar,still short of breath with minimal exertion/hypoxic Physical Exam 2 Exam: Exam: General: AO X 3, frail, ill-appearing, dyspneic Resp: air entry diminshed at bases. CVS: S1,S2, tachy GI: soft, non tender, non distended Neuro: motor grossly intact, alert Psych: Anxious affect, appropriate insight Vital Signs: Vital Signs: Last Vital Signs Temp 97.1 F 05/31/25 15:42 Pulse 111 H 05/31/25 15:42 Resp 20 05/31/25 15:42 BP 141/68 H 05/31/25 15:42 Pulse Ox 94 05/31/25 15:42 O2 Del Method Nasal Cannula 05/31/25 15:42 O2 Flow Rate 1 05/31/25 15:42 BMI result Body Mass Index 21.2 Objective Data Active Medications Acetaminophen (Acetaminophen 325 Mg Tablet) 650 mg PO Q6H PRN PRN Reason: Pain, Mild 1-3,fever,headache Acetylcysteine (Acetylcysteine 10 % 400 Mg/4 Ml Vial) 400 mg INHALE RBID [facility] Last Admin: 05/31/25 07:54 Dose: 400 mg Documented By: ARTHUR Albuterol/Ipratropium (Albuterol/Iprat 2.5/0.5mg 3 Ml Ampul.Neb) 3 ml INHALE RQ4H WHILE AWAKE PRN PRN Reason: sob Albuterol/Ipratropium (Albuterol/Iprat 2.5/0.5mg 3 Ml Ampul.Neb) 3 ml INHALE RBID [facility] Last Admin: 05/31/25 07:54 Dose: 3 ml Documented By: ARTHUR Amlodipine Besylate (Amlodipine Besylate 5 Mg Tablet) 5 mg PO DAILY [facility] Last Admin: 05/31/25 08:35 Dose: 5 mg Documented By: PATRICK Calcium Carbonate (Calcium Carbonate 750 Mg Tab.Chew) 750 mg PO Q4H PRN PRN Reason: Heartburn Enoxaparin Sodium (Enoxaparin Sodium 40 Mg/0.4 Ml Syringe) 40 mg SUBCUT Q24H [facility] Last Admin: 05/31/25 08:42 Dose: 40 mg Documented By: PATRICK Fluticasone/Umeclidinium/Vilanterol (Fluticasone/Umeclidinium/Vilanterol 200/62.5/25 Blst.W.Dev) 1 puff INHALE RDAILY [facility] Last Admin: 05/31/25 07:54 Dose: 1 puff Documented By: ARTHUR Piperacillin Sod/Tazobactam (Sod 3.375 gm/ Sodium Chloride) 50 mls @ 100 mls/hr IV Q6H [facility] Last Infusion: 05/31/25 12:28 Dose: Infused Documented By: PATRICK Lactulose (Lactulose 20 Gm/30 Ml Solution) 20 gm PO DAILY PRN PRN Reason: Constipation Last Admin: 05/30/25 21:00 Dose: 20 gm Documented By: LYLA Lisinopril (Lisinopril 10 Mg Tablet) 10 mg PO DAILY [facility] Last Admin: 05/31/25 08:35 Dose: 10 mg Documented By: PATRICK Magnesium Hydroxide (Milk Of Magnesia 30 Ml Oral.Susp) 30 ml PO DAILY PRN PRN Reason: Constipation Melatonin (Melatonin 3 Mg Tablet) 6 mg PO BEDTIME PRN PRN Reason: Insomnia Methadone HCl (Methadone Hcl 10 Mg Tablet) 10 mg PO BID@0900,1500 [facility] Last Admin: 05/31/25 14:57 Dose: 10 mg Documented By: SCOTT Methadone HCl (Methadone Hcl 10 Mg Tablet) 30 mg PO BEDTIME [facility] Last Admin: 05/30/25 20:57 Dose: 30 mg Documented By: LYLA Methylphenidate HCl (Methylphenidate Hcl 10 Mg Tablet) 20 mg PO TID@0800,1130,1600 [facility] Last Admin: 05/31/25 14:57 Dose: 20 mg Documented By: SCOTT Methylprednisolone Sodium Succinate (Methylprednisolone Sod Succ 40 Mg/Ml Vial) 40 mg IVPUSH Q12H [facility] Last Admin: 05/31/25 11:33 Dose: 40 mg Documented By: RALF Metoclopramide HCl (Metoclopramide Hcl 10 Mg Tablet) 20 mg PO BID [facility] Last Admin: 05/31/25 08:35 Dose: 20 mg Documented By: PATRICK Omeprazole (Omeprazole 40 Mg Capsule.Dr) 40 mg PO DAILY@0630 [facility] Last Admin: 05/31/25 05:45 Dose: 40 mg Documented By: LYLA Oxycodone HCl (Oxycodone Hcl Immed Release 15 Mg Tablet) 60 mg PO 5XD PRN PRN Reason: Pain, Severe (Pain Scale 7-10) Last Admin: 05/31/25 13:49 Dose: 60 mg Documented By: SCOTT Sodium Chloride (0.9 % Sodium Chloride Flush 3 Ml Syringe) 3 ml IVFLUSH QSHIFT [facility] Last Admin: 05/31/25 08:41 Dose: 3 ml Documented By: PATRICK Trimethoprim/Sulfamethoxazole (Sulfamethox/Trimeth 800/160 Tablet) 1 tab PO Q12H [facility] Last Admin: 05/31/25 11:32 Dose: 1 tab Documented By: RALF Labs 05/29/25 10:31 05/29/25 10:31 Labs: Laboratory Results - last 24 hr 05/29/25 18:43 IgG Total 844 IgA Total 168 IgM 97 Proteinase 3 (PR3) Ab <1.0 Myeloperoxidase Ab <1.0 Microbiology Microbiology Results: Microbiology 05/29/25 10:43 Blood Culture - Preliminary Blood - Venous No growth after 48 hours. 05/29/25 10:31 Blood Culture - Preliminary Blood - Venous No growth after 48 hours. 05/30/25 09:16 Gram Stain - Final Sputum - Expectorated Routine Culture - Preliminary Culture in progress. Assessment and Plan (1) Acute respiratory failure with hypoxia: Status: Acute (2) Multifocal pneumonia: Status: Acute Plan 69F PMH rheumatoid arthritis, COPD, history of boop, hypertension, chronic pain on methadone presented with shortness of breath and hypoxia Acute hypoxic respiratory failure due to multifocal pneumonia -community-acquired Ceftriaxone azithromycin, check viral panel, follow up cultures-sprutum pendin-prelim(Gram-positive rods) tapering oxygen patient goes in 70s sats freeman, also short of breath Pulmonary eval-added bactrim/zosyn COPD with acute decompensation IV Solu-Medrol, DuoNebs Rheumatoid arthritis with chronic pain Continue oxycodone and methadone Hypertension Amlodipine, benazepril DVT prophylaxis Lovenox DNR/DNI Given severity of hypoxia and significant CT findings expected-need oxygen, IV antibiotics, monitor for oxygen, taper oxygen slowly. Quality Stroke Does the patient have a stroke diagnosis?: No VTE Prior VTE?: No VTE Risk Level:: Medical - moderate - high VTE Device Contraindication: Treatment Not Indicated VTE Drug Contraindication: N/A - Med Ordered
[2025-06-01] VITALS (8 sets, daily range): BP systolic 142–161; BP diastolic 69–79; PULSE 83–117; RESP 14–18; TEMP 35.9–36.6; O2SAT 92–95
[2025-06-01] MEDS: oxyCODONE HCl Immed Release 15 MG TABLET 60 MG PO ×4 (03:37→19:27)
[2025-06-01] MEDS: 0.9 % Sodium Chloride Flush 3 ML SYRINGE IVFLUSH ×2 (07:26→23:39)
[2025-06-01] MEDS: Fluticasone/Umeclidinium/Vilanterol 200/62.5/25 BLST.W.DEV 1 PUFF INHALE (07:39)
[2025-06-01] MEDS: Acetylcysteine 10 % 400 MG/4 ML VIAL INHALE (07:40)
[2025-06-01] MEDS: Albuterol/Iprat 2.5/0.5MG 3 ML AMPUL.NEB INHALE (07:40)
--- NOTE | 2025-06-01 08:43 | P.PNPL_ITS ---
Subjective Subjective Date of Service: 06/01/25 Interval history: The patient was seen on exam. Feels better. Still weaning off the oxygen. The albuterol is helping her along with the Mucomyst but the shaking tremulousness from it causes her to have more pain because of arthritis. Will go ahead and stop the standing nebulizer treatments and she can just use it as needed. She will continue with the IV antibiotics for another day. Hoping she can be weaned off the oxygen and be able to be discharged on oral antibiotics tomorrow. Objective Data Labs 05/29/25 10:31 05/29/25 10:31 Microbiology Microbiology Results: Microbiology 05/30/25 09:16 Sputum - Expectorated Gram Stain - Final 05/30/25 09:16 Sputum - Expectorated Routine Culture - Preliminary 05/29/25 10:43 Blood - Venous Blood Culture - Preliminary No growth after 48 hours. 05/29/25 10:31 Blood - Venous Blood Culture - Preliminary No growth after 48 hours. Review of Systems Constitutional: Denies fever(s) Eyes: Reports no additional eye complaints Reports system reviewed and no additional complaints, except as documented Cardiovascular: Denies chest pain and Reports dyspnea on exertion Respiratory: Reports chest congestion, Reports cough, Reports dyspnea on exertion and Denies wheezing Gastrointestinal: Reports as per HPI Musculoskeletal: Reports myalgias, Reports deformity, Reports arthralgias and Reports limited range of motion Reports system reviewed and no additional complaints, except as documented Endocrine: Reports no additional endocrine complaints Hematologic/Lymphatic: Reports no additional hematologic/lymphatic complaints Allergic/Immunologic: Denies wheezing Physical Exam 2 Vital Signs: Vital Signs: Last Vital Signs Temp 97.0 F 06/01/25 07:44 Pulse 89 06/01/25 07:44 Resp 14 06/01/25 07:44 BP 142/75 H 06/01/25 07:44 Pulse Ox 92 06/01/25 07:44 O2 Del Method Nasal Cannula 06/01/25 07:44 O2 Flow Rate 1 06/01/25 07:44 BMI result Body Mass Index 21.2 Const: General: comfortable HEENT: Head: Yes normocephalic Neck: Neck: Yes supple Chest: Chest palpation & inspection: normal inspection of the chest Resp: Effort & Inspection: normal respiratory effort Auscultation: no crackles and diminished lung sounds Cardio: Heart sounds: S1 normal heart sound present and S2 normal heart sound present GI: Palpation (GI): Soft to palpation Skin: General skin exam: no rashes or lesions noted Extrem: General: Yes no clubbing, cyanosis or edema Procedures Date of Service Date of Service: 06/01/25 Assessment and Plan Assessment and plan (1) Acute respiratory failure with hypoxia: Status: Acute (2) Multifocal pneumonia: Status: Acute (3) Rheumatoid arthritis: Status: Acute Plan Continue Zosyn and Bactrim Continue Solu-Medrol Awaiting sputum culture Awaiting blood work Titrate oxygen to maintain a pulse ox above 90% Continue with aerobic on CPT stop Mucomyst twice a day Incentive spirometer she will be provided for deep breathing exercises Time Spent With Patient Time: Total time managing care of this patient today ____ minutes. Progress Note: Quality Stroke Does the patient have a stroke diagnosis?: No
[2025-06-01] MEDS: Sulfamethox/Trimeth 800/160 TABLET 1 TAB PO ×2 (10:59→23:39)
--- NOTE | 2025-06-01 12:23 | HO.PM.IMPN ---
Subjective Subjective Date of Service: 06/01/25 Interval History: Hypoxic/pneumonia Review of Systems seems similar,still short of breath with minimal exertion/hypoxic- somewhat improving but feels weak and poor resp efforts Physical Exam Exam: Exam: eneral: AO X 3, frail, ill-appearing, dyspneic Resp: air entry diminshed at bases. CVS: S1,S2, tachy GI: soft, non tender, non distended Neuro: motor grossly intact, alert Psych: Anxious affect, appropriate insight Vital Signs: Vital Signs: Last Vital Signs Temp 97.5 F 06/01/25 11:39 Pulse 101 H 06/01/25 11:39 Resp 16 06/01/25 11:39 BP 142/69 H 06/01/25 11:39 Pulse Ox 92 06/01/25 11:39 O2 Del Method Nasal Cannula 06/01/25 11:39 O2 Flow Rate 1 06/01/25 11:39 BMI result Body Mass Index 21.2 Objective Data Active Medications Acetaminophen (Acetaminophen 325 Mg Tablet) 650 mg PO Q6H PRN PRN Reason: Pain, Mild 1-3,fever,headache Albuterol/Ipratropium (Albuterol/Iprat 2.5/0.5mg 3 Ml Ampul.Neb) 3 ml INHALE RQ4H WHILE AWAKE PRN PRN Reason: sob Amlodipine Besylate (Amlodipine Besylate 5 Mg Tablet) 5 mg PO DAILY [facility] Last Admin: 06/01/25 07:28 Dose: 5 mg Documented By: ЕКАТЕРИНА Calcium Carbonate (Calcium Carbonate 750 Mg Tab.Chew) 750 mg PO Q4H PRN PRN Reason: Heartburn Enoxaparin Sodium (Enoxaparin Sodium 40 Mg/0.4 Ml Syringe) 40 mg SUBCUT Q24H [facility] Last Admin: 06/01/25 08:40 Dose: 40 mg Documented By: ЕКАТЕРИНА Fluticasone/Umeclidinium/Vilanterol (Fluticasone/Umeclidinium/Vilanterol 200/62.5/25 Blst.W.Dev) 1 puff INHALE RDAILY [facility] Last Admin: 06/01/25 07:39 Dose: 1 puff Documented By: KAI Piperacillin Sod/Tazobactam (Sod 3.375 gm/ Sodium Chloride) 50 mls @ 100 mls/hr IV Q6H [facility] Last Infusion: 06/01/25 06:12 Dose: Infused Documented By: LYLA Lactulose (Lactulose 20 Gm/30 Ml Solution) 20 gm PO DAILY PRN PRN Reason: Constipation Last Admin: 05/31/25 22:19 Dose: 20 gm Documented By: LYLA Lisinopril (Lisinopril 10 Mg Tablet) 10 mg PO DAILY [facility] Last Admin: 06/01/25 07:28 Dose: 10 mg Documented By: ЕКАТЕРИНА Magnesium Hydroxide (Milk Of Magnesia 30 Ml Oral.Susp) 30 ml PO DAILY PRN PRN Reason: Constipation Melatonin (Melatonin 3 Mg Tablet) 6 mg PO BEDTIME PRN PRN Reason: Insomnia Methadone HCl (Methadone Hcl 10 Mg Tablet) 10 mg PO BID@0900,1500 [facility] Last Admin: 06/01/25 07:28 Dose: 10 mg Documented By: ЕКАТЕРИНА Methadone HCl (Methadone Hcl 10 Mg Tablet) 30 mg PO BEDTIME [facility] Last Admin: 05/31/25 20:52 Dose: 30 mg Documented By: LYLA Methylphenidate HCl (Methylphenidate Hcl 10 Mg Tablet) 20 mg PO TID@0800,1130,1600 [facility] Last Admin: 06/01/25 10:59 Dose: 20 mg Documented By: ЕКАТЕРИНА Methylprednisolone Sodium Succinate (Methylprednisolone Sod Succ 40 Mg/Ml Vial) 40 mg IVPUSH Q12H [facility] Last Admin: 06/01/25 10:49 Dose: 40 mg Documented By: ЕКАТЕРИНА Metoclopramide HCl (Metoclopramide Hcl 10 Mg Tablet) 20 mg PO BID [facility] Last Admin: 06/01/25 07:28 Dose: 20 mg Documented By: ЕКАТЕРИНА Omeprazole (Omeprazole 40 Mg Capsule.Dr) 40 mg PO DAILY@0630 [facility] Last Admin: 06/01/25 05:37 Dose: 40 mg Documented By: LYLA Oxycodone HCl (Oxycodone Hcl Immed Release 15 Mg Tablet) 60 mg PO 5XD PRN PRN Reason: Pain, Severe (Pain Scale 7-10) Last Admin: 06/01/25 07:28 Dose: 60 mg Documented By: ЕКАТЕРИНА Sodium Chloride (0.9 % Sodium Chloride Flush 3 Ml Syringe) 3 ml IVFLUSH QSHIFT [facility] Last Admin: 06/01/25 07:26 Dose: 3 ml Documented By: ЕКАТЕРИНА Trimethoprim/Sulfamethoxazole (Sulfamethox/Trimeth 800/160 Tablet) 1 tab PO Q12H [facility] Last Admin: 06/01/25 10:59 Dose: 1 tab Documented By: ЕКАТЕРИНА Labs 05/29/25 10:31 05/29/25 10:31 Microbiology Microbiology Results: Microbiology 05/30/25 09:16 Gram Stain - Final Sputum - Expectorated Routine Culture - Preliminary 05/29/25 10:43 Blood Culture - Preliminary Blood - Venous No growth after 48 hours. 05/29/25 10:31 Blood Culture - Preliminary Blood - Venous No growth after 48 hours. Assessment and Plan (1) Acute respiratory failure with hypoxia: Status: Acute (2) Multifocal pneumonia: Status: Acute Plan 69F PMH rheumatoid arthritis, COPD, history of boop, hypertension, chronic pain on methadone presented with shortness of breath and hypoxia Acute hypoxic respiratory failure due to multifocal pneumonia -community-acquired Ceftriaxone azithromycin, check viral panel, follow up cultures-sprutum pendin-prelim(Gram-positive rods) short of breathslightly improving ,slowly taper oxygen Pulmonary eval-added bactrim/zosyn COPD with acute decompensation IV Solu-Medrol, DuoNebs Rheumatoid arthritis with chronic pain Continue oxycodone and methadone Hypertension Amlodipine, benazepril DVT prophylaxis Lovenox generalised weak: added pt eval DNR/DNI Given severity of hypoxia and significant CT findings expected-need oxygen, IV antibiotics, monitor for oxygen, taper oxygen slowly. Quality Stroke Does the patient have a stroke diagnosis?: No VTE Prior VTE?: No VTE Risk Level:: Medical - moderate - high VTE Device Contraindication: Treatment Not Indicated VTE Drug Contraindication: N/A - Med Ordered
--- NOTE | 2025-06-01 14:48 | MHC.CM.PN ---
per rounds pt expected to dc sat dc plan re,chandra alcantar
[2025-06-01 20:54] LABS: Mycoplasma Pneumoniae - IgG 1.05 (<=0.90); Mycoplasma Pneumoniae - IgM 66 U/mL (<770)
[2025-06-02] VITALS (7 sets, daily range): BP systolic 127–167; BP diastolic 65–79; PULSE 90–122; RESP 16–18; TEMP -7.7–36.3; O2SAT 90–94
[2025-06-02] MEDS: oxyCODONE HCl Immed Release 15 MG TABLET 60 MG PO ×3 (02:13→13:54)
--- NOTE | 2025-06-02 06:27 | PC.NURSE ---
pt weaned off of O2 over the night from 1L, pt satting at 93% on RA, denies SOB this time.
[2025-06-02] MEDS: 0.9 % Sodium Chloride Flush 3 ML SYRINGE IVFLUSH (07:39)
[2025-06-02] MEDS: Fluticasone/Umeclidinium/Vilanterol 200/62.5/25 BLST.W.DEV 1 PUFF INHALE (08:19)
[2025-06-02] MEDS: Sulfamethox/Trimeth 800/160 TABLET 1 TAB PO (12:27)
--- NOTE | 2025-06-02 14:05 | MHC.CM.PN ---
Per MD, medically cleared for dc home w/ new PT services through [facility]. Son at bedside to transport. IMM delivered.
--- NOTE | 2025-06-02 14:42 | PM.DS ---
DS: Providers Provider Date of Service: 06/02/25 Date of admission: 05/29/25 15:04 Date of discharge: 06/02/25 Primary care physician: Khang Anguiano MD Consults: 05/29/25 15:02 Consult to Pulmonology Routine Consulting Provider: [facility] [place] Pulmonology Services Reason for consultation: bilateral GGO, history of RA 05/30/25 08:42 Consult to Pulmonology Routine Consulting Provider: James Nelson Reason for consultation: pneumonia Has provider been notified: Yes Attending physician on discharge: Priscilla Negrete Discharging clinician: Priscilla Negrete DS: Diagnosis Discharge Diagnosis (1) Acute respiratory failure with hypoxia: Status: Acute (2) Multifocal pneumonia: Status: Acute DS: Summary Hospital Course Hospital Course: HPI:69F PMH rheumatoid arthritis, COPD, history of boop, hypertension, chronic pain on methadone presented with shortness of breath and hypoxia. Patient states for about 4 days has been having flu-like symptoms with nausea vomiting diarrhea shortness of breath and dry cough, reports subjective fever and chills. Denies sick contacts. Went to urgent care and found to have hypoxia of 80% on room air, patient does not use oxygen at home. In ED noted to be hypoxic to 78% on room air. CT of chest with bilateral ground-glass opacities. Hospital course: 69F PMH rheumatoid arthritis, COPD, history of boop, hypertension, chronic pain on methadone presented with shortness of breath and hypoxia: Patient admitted for Acute hypoxic respiratory failure due to multifocal pneumonia -community-acquired: Blood culture, sputum culture, viral panel sent,cta:Multifocal pneumonia is most pronounced throughout the left lung with mild involvement of the right lower lobe and minimal involvement of the right middle lobe. There is a small left parapneumonic effusion. Patient is started on nebs, steroids, IV antibiotics- With the above supportive care patient seems to be improving significantly, no hypoxia even with walking ,maintaining sats of 90s. Patient has mild tachycardia she says that she chronically run heart rate of 110-120. Sputum culture-staph aureus sensitive to Bactrim, Gram-negative gopi. Blood culture negative, chest x-ray repeated seems improving pneumonia. Patient followed by Pulmonary: Recommended to switch to Bactrim and Augmentin upon discharge, also prednisone taper. Patient was strongly advised to repeat chest imaging in 3-4 weeks to see resolution pneumonia. plan: Complete Augmentin and Bactrim as prescribed. Please repeat chest imaging in 3-4 weeks to see resolution pneumonia. Prednisone taper as prescribed Follow-up with Pulmonary outpatient. Above management discussed with the patient in detail length she understand and in agreement with the above plan, time spent 50 minutes. Time Attestation Total time managing care of this patient today: 45 mintues. Discharge Coordination Time (in mins): 45 minute Quality: Safe Use of Opioids Does Pt have an Active Cancer Diagnosis on the Problem List?: No Quality: Stroke Does the patient have a stroke diagnosis?: No Physical Exam Exam: Exam: general: AO X 3, frail, more comfortable, not short of breath Resp: air entry diminshed at bases. CVS: S1,S2, tachy GI: soft, non tender, non distended Neuro: motor grossly intact, alert Psych: Has some anxiety but appropriate insight. Vital Signs: Vital Signs: Last Vital Signs Temp 18 F L 06/02/25 13:14 Pulse 116 H 06/02/25 13:14 Resp 18 06/02/25 13:14 BP 144/67 H 06/02/25 13:14 Pulse Ox 92 06/02/25 13:14 O2 Del Method Room Air 06/02/25 13:14 O2 Flow Rate 1 06/02/25 02:56 BMI result Body Mass Index 21.2 DS: Data Data Completed and Pending Labs on day of discharge: Laboratory Results - last 24 hr 05/29/25 18:43 Mycoplasma pneumon IgG 1.05 H Mycoplasma pneumon IgM 66 Preliminary micro results at discharge 05/30/25 09:16 Routine Culture - Preliminary Sputum - Expectorated Staphylococcus aureus Gram negative gopi 05/29/25 10:43 Blood Culture - Preliminary Blood - Venous No growth after 48 hours. 05/29/25 10:31 Blood Culture - Preliminary Blood - Venous No growth after 48 hours. Imaging Chest x-ray: Radiologist's impression: ITS Impressions Chest X-Ray 05/29/25 10:55 IMPRESSION: Acute on chronic airspace disease. Superimposed malignancy cannot be excluded. KUB X-Ray 05/29/25 11:39 IMPRESSION: Nonobstructive bowel gas pattern. Small-moderate colonic stool burden. Multiple calcifications project over the abdomen, as detailed above. Chest CTA 05/29/25 13:51 IMPRESSION: Multifocal pneumonia is most pronounced throughout the left lung with mild involvement of the right lower lobe and minimal involvement of the right middle lobe. There is a small left parapneumonic effusion. There are no filling defects to suggest underlying pulmonary embolus. There is a moderate size sliding hiatal hernia. Fleischner guidelines were followed. Chest X-Ray 05/30/25 10:19 IMPRESSION: Persistent multifocal pneumonia. Chest X-Ray 06/01/25 07:09 IMPRESSION: Improving multifocal pneumonia. Discharge Plan Discharge Anticipated Discharge Date/Time: 06/02/25 14:32 Patient Disposition: Home Health Service Discharge Diagnosis: pneumonia Referrals: [facility] [Outside] - 3-5 Days Referral Note: [facility] will call you to schedule appointments in the home Khang Anguiano MD [Primary Care Provider, Internal Medicine] - 1 Week Discharge Medications: New sulfamethoxazole-trimethoprim 800-160 mg Tablet 1 tab PO Q12H Qty: 19 0RF amoxicillin-pot clavulanate 875-125 mg Tablet 1 tab PO Q12H Qty: 19 0RF prednisone 10 mg tablet See Taper PO DAILY Qty: 30 0RF Taper: Prednisone 40 mg daily for 3 Days and 0 Hour 30 mg daily for 3 Days and 0 Hour 20 mg daily for 3 Days and 0 Hour 10 mg daily for 3 Days and 0 Hour Continued albuterol sulfate 2.5 mg /3 mL (0.083 %) solution for nebulization 2.5 mg inhalation Q6H PRN (Reason: Shortness Of Breath Or Wheezing) methylphenidate HCl 20 mg tablet 20 mg PO TID@0800,1130,1600 methadone 10 mg tablet 10 mg PO BID@0900,1500 methadone 10 mg tablet 30 mg PO BEDTIME omeprazole 40 mg capsule,delayed release(DR/EC) 40 mg PO DAILY@0630 leflunomide 20 mg tablet 20 mg PO BEDTIME amlodipine-benazepril 5-10 mg capsule 1 cap PO BEDTIME oxycodone 30 mg tablet 60 mg PO 5XD PRN (Reason: Pain) Rx Instructions: Take 2 tablets by mouth 5 times per day as needed for pain. Max 10 tabs per day. metoclopramide HCl 10 mg tablet 20 mg PO BID lactulose 10 gram/15 mL solution 30 ml PO DAILY PRN (Reason: Constipation) Trelegy Ellipta 200-62.5-25 mcg blister with device 1 ea inhalation DAILY Discharge Orders: Discharge Order (Routine); Ordered 06/02/25 Ordered By: Priscilla Negrete Diet: Advance to usual diet Activity on Discharge: As tolerated Stand Alone Forms: Patient Portal Discharge page Print Language: Cameroonian Care Plan Goals: Complete Augmentin and Bactrim as prescribed. Prednisone taper as prescribed Follow-up with Pulmonary outpatient Health Concerns: As above. Plan of Treatment: As above. Assessment: As above. Patient Instructions: Pneumonia (DC)
--- NOTE | 2025-06-02 15:00 | P.F2F_ITS ---
Service Date Service Date: 06/02/25 Encounter Date of encounter: 06/02/25 Encounter: Hypoxic/pneumonia Reasons for Services Signs and symptoms assessed: Pneumonia, hypoxia Reason for correction: medication management, medication treatment and teach disease management MD Overseeing Care: Khang Anguiano Homebound: Leaving the home is medically contraindicated at this time without the asist of a device and/or another person due th the listed conditions above and below. Reason homebound: weakness related to hospital stay Homebound supporting statement: Patient is generalised weak post hospitlisation and need help with going to appointments and labs draws as well as PT. Certification: Based on the above findings, I certify that this patient is confined to the home and needs intermittent correction care, physical therapy and/or speech therapy, or continues to need occupational therapy. The patient is under my care, and I have initiated the establishment of the plan of care. The patient will be followed by a physician who will periodically review the plan of care. Time Spent With Patient Time: Total time managing care of this patient today ____ minutes.
[2025-06-03 23:48] LABS: Anti Nuclear Antibody Screen NEGATIVE (NEGATIVE)
[2025-06-04 16:54] LABS: Asperg fumigatus Precip Abs NEGATIVE (NEGATIVE); Micropoly faeni Abs NEGATIVE (NEGATIVE); Saccharo pora viridis Abs NEGATIVE (NEGATIVE); Thermo candidus Abs NEGATIVE (NEGATIVE)
[2025-06-05 22:49] LABS: Strep Pneumo Ag urine Not Detected (Not Detected)
--- NOTE | 2025-06-28 16:22 | P.CDIM_ITS ---
PROVIDER RESPONSE TEXT: To clarify, the appropriate diagnosis supported by the clinical indicators: Staph Pneumonia: possible mssa pneumonia QUERY TEXT: PHYSICIAN'S DOCUMENTATION REQUEST Date of Query: 06/22/2025 08:19 AM EST Patient Name: Lilliana Ma Admit Date: 05/29/2025 Dear Priscilla Negrete MD, A review of the medical record indicates additional documentation may be needed. Please review below and update the documentation accordingly. Clinical Indicators: shortness of breath, low SAT multifocal PNA sputum culture grew gram also klebsiella pneumoniae -which is senstive to Bactrim, as well as staph aureus. Based on the above, could you clarify in the Progress Notes further specificity regarding the most likely type of pneumonia you suspect you are treating (even if specific organism may not be known)? Aspiration Pneumonia Please indicate substance such as food or vomitus, oils, or other solids or liquids Staph Pneumonia Please indicate if MRSA or MSSA Strep Pneumonia Please indicate if strep B, strep pneumonia, or other type Gram negative Pneumonia Please indicate if Pseudomonas, Klebsiella, or other Mycoplasma Pneumonia Viral Pneumonia Please indicate parainfluenza, RSV, adenovirus, influenza (indicate type), etc. Other organism Please specify known or suspected organism Other (explain) Clinically unable to determine (explain) Thank you, Ronda Oliveira RN Use of terms such as suspected, likely, concern for, or probable (associated with a specific diagnosis that is being evaluated, monitored, or treated as if it exists) are acceptable and can be coded in the inpatient setting, when documented at the time of discharge. Please use your independent medical judgment in providing your response. THIS QUERY IS PART OF THE PERMANENT MEDICAL RECORD
== END 2025-06-02 15:37 | disposition home health service (06) | DRG 871 ==
LOC: HO.ED 14:22 → HO.EDOVER 15:14 → HO.S3 17:20
PROVIDERS: Hospitalist; Physician Assistant Medical; Registered Nurse Emergency; Admitting Provider Internal Medicine; Emergency Provider Emergency Medicine; PCP Internal Medicine; Visit Provider Internal Medicine
DX: A41.9 Sepsis, unspecified organism (principal); J15.211 Pneumonia due to Methicillin susceptible Staphylococcus aureus; J96.01 Acute respiratory failure with hypoxia; J44.0 Chronic obstructive pulmonary disease with (acute) lower respiratory infection; J44.1 Chronic obstructive pulmonary disease with (acute) exacerbation; J91.8 Pleural effusion in other conditions classified elsewhere; Z66 Do not resuscitate; B96.1 Klebsiella pneumoniae [K. pneumoniae] as the cause of diseases classified elsewhere; B95.61 Methicillin susceptible Staphylococcus aureus infection as the cause of diseases classified elsewhere; G89.29 Other chronic pain; M06.9 Rheumatoid arthritis, unspecified; Z87.891 Personal history of nicotine dependence; Z79.891 Long term (current) use of opiate analgesic; Z79.899 Other long term (current) drug therapy
CPT/HCPCS: 71045; 71046; 71275; 74018; 80053; 81003; 82140; 82728; 82784; 82803; 83540; 83605; 83735; 84484; 85025; 85379; 85610; 85652; 86021; 86038; 86200; 86331; 86606; 86609; 86738; 87040; 87070; 87077; 87186; 87205; 87449; 87633; 87637; 87640; 87641; 87899; 93005; 94640; 97162; 99285; J0696; J1650; J2543; J2919; Q9967

== ENCOUNTER → 2025-05-29 10:05 | Outpatient (BNV) | payer MEDICARE, SELFPAY | PROVIDERS: Admitting Provider Internal Medicine; Emergency Provider Emergency Medicine; PCP Internal Medicine; Visit Provider Internal Medicine Cardiovascular Disease | DX: R06.00 Dyspnea, unspecified (principal) | CPT/HCPCS: 93010 ==

== ENCOUNTER → 2025-05-29 10:05 | Outpatient (BNV) | payer MEDICARE, SELFPAY | PROVIDERS: Emergency Provider Emergency Medicine; PCP Internal Medicine; Visit Provider Radiology Diagnostic Radiology | DX: J18.9 Pneumonia, unspecified organism (principal); J91.8 Pleural effusion in other conditions classified elsewhere; K44.9 Diaphragmatic hernia without obstruction or gangrene; R09.02 Hypoxemia; R14.0 Abdominal distension (gaseous) | CPT/HCPCS: 71046; 71275; 74018 ==

== ENCOUNTER 2025-05-29 15:04 | Outpatient (BNV) | payer MEDICARE, SELFPAY | END 2025-06-01 07:00 | PROVIDERS: Admitting Provider Internal Medicine; Emergency Provider Emergency Medicine; PCP Internal Medicine; Visit Provider Radiology Diagnostic Ultrasound | DX: J18.8 Other pneumonia, unspecified organism (principal); R09.02 Hypoxemia | CPT/HCPCS: 71045 ==

== ENCOUNTER 2025-05-29 15:04 | Outpatient (BNV) | payer MEDICARE, SELFPAY | END 2025-05-30 09:31 | PROVIDERS: Admitting Provider Internal Medicine; Emergency Provider Emergency Medicine; PCP Internal Medicine; Visit Provider Radiology Diagnostic Radiology | DX: J96.01 Acute respiratory failure with hypoxia (principal) | CPT/HCPCS: 71045 ==

== ENCOUNTER → 2025-05-29 15:04 | Outpatient (BNV) | payer MEDICARE, SELFPAY | PROVIDERS: Admitting Provider Internal Medicine; Emergency Provider Emergency Medicine; PCP Internal Medicine; Visit Provider Internal Medicine | DX: J96.01 Acute respiratory failure with hypoxia (principal); J18.9 Pneumonia, unspecified organism | CPT/HCPCS: 99231; 99232 ==

== ENCOUNTER → 2025-05-29 15:04 | Outpatient (BNV) | payer MEDICARE, SELFPAY | PROVIDERS: Admitting Provider Internal Medicine; Emergency Provider Emergency Medicine; PCP Internal Medicine; Visit Provider Hospitalist | DX: J96.01 Acute respiratory failure with hypoxia (principal); J18.9 Pneumonia, unspecified organism; M05.9 Rheumatoid arthritis with rheumatoid factor, unspecified | CPT/HCPCS: 99233 ==

== ENCOUNTER 2025-07-02 13:22 | Outpatient (REF) | payer MEDICARE, SELFPAY ==
--- OUTSIDE RECORDS SUMMARY | 2025-05-30 08:45 | XMS_ITS ---
Author Organization [facility] Address [address] [place] [address] Care Team Providers Care Cs Associate Name Role Phone Khang Anguiano MD Primary Care Provider Unavailab Kristen Escobedo [phone] Encounters Encounter Location Date Provider Diagnosis [address] [id number] 05/30/2025 Kristen Meza Plan Of Treatment Next Appt Details Provider Name:Kristen A Derrick , 09/04/2025 02:45:00 PM, [address] [place] [address], [place], [id number], Progress Notes * Karlie MAB:1955 ([age] yo F)Acc No.[id number]:05/30/2025 Progress Notes Patient: Lilliana SANTORO Provider: Nicole Meza DPM :1955 A ge:69 Y S ex:Female Date:05/30/2025 Address:[address] [place] [address] [place], [place] Pcp:Khang Anguiano MD Subjective: * Chief Complaints: * * Medical History: Objective: * Vitals: Assessment: Plan: * Treatment: * Images: * The named appointment provid er may or may not be the originator of this progress note, and it is not deemed complete until electronically signed by the appointment provider. Sign off status: Pending * Provider: Nicole Meza DPM Date: 07/30/2024 Generated for Rina hawkins/Ev/Antonia on: 1 09/02/2024 07:20 PM EST
--- NOTE | ~2025-07-02 | XR_ITS ---
EXAMINATION: XR CHEST CLINICAL INFORMATION: PNEUMONIA COMPARISON: Numerous priors, most recently 06/01/2025. Chest CT 05/29/2025. TECHNIQUE: 2 views of the chest were obtained. FINDINGS: The cardiac, hilar, and mediastinal contours are normal. The aortic mural calcifications. Retrocardiac hiatus hernia. Diffuse prominence of the background bronchovascular interstitium. Abnormal opacities throughout the left perihilar region, similar to prior exams dating back to 05/29/2025. Abnormal groundglass opacity in the right medial apex. There is underlying COPD. Flattened hemidiaphragms bilaterally. There is stable scarring in the left lateral base. There is no pneumothorax or pleural effusion. There is no focal osseous or soft tissue abnormality. XR/XR chest 2V IMPRESSION: 1. Compared with 05/29/2025, similar patchy parenchymal consolidative opacities involving the left perihilar regions extending into the left upper lung. 2. Diffuse prominence of the background bronchovascular markings, suggesting diffuse peribronchial thickening. 3. COPD with left basilar scarring which appears unchanged. 4. No definite effusion or pneumothorax. 5. Hiatus hernia. Electronically signed by: Saud Salazar MD 07/02/2025 02:36 PM [facility]
--- OUTSIDE RECORDS SUMMARY | 2025-07-02 19:20 | XMS_ITS | Patient Health Record ---
Author Organization [facility] Address [address] [place] [address] Care Team Providers Care Pneumatic Riveter Name Role Phone NUBAI LOERA MD Primary Care Provider HUBER Souza Unavailable [phone] Allergies Allergen (clinical drug ingredient) Drug/Non Drug Allergy documented on EMR Reaction Allergy Type Onset Date Status diltiazem Cardizem Unknown Drug Allergy Active famotidine Pepcid Unknown Drug Allergy Active tramadol Ultram Unknown Drug Allergy Active diltiazem dilTIAZem Unknown Drug Allergy Active Reason For Referral No Information Medications Medication SIG (Take, Route, Frequency, Duration) Notes Start Date End Date Status Reglan 5 MG Tablet 1 tab(s) orally twic e daily Active Ritalin 20 MG Tablet 1 tab(s) orally 3 t imes a day Active Calcium 600+D 600-200 MG-UNIT Tablet 1 tab(s) orally 2 times a day Active Leflunomide 20 MG Tablet 1 tablet orally once a day; Duration: 90 days Active Methadone HCl 10 MG Tablet 1.5 tab(s) or ally 3 x a day and 30 mg at bedtime Active oxyCODONE HCl 30 MG Tablet 1 tab(s) orally 4 x a day Active Lactulose 2 TSP ORALLY AT BEDTIME Active amLODIPine Besylate 10 MG Tablet 1 tab(s) Orally once a day Active Immunizations Vaccine Route Administration Date Status Comme nts PPD, TB Intradermal Test SC Subcutaneous 01/23/2013 Admini stered Social History Tobacco Use: Social History Observation Description Date Details (start date - stop date) Former Smoker NA - NA Social History Tobacco Use: Social Info Question Answer Notes Smoking Are you a: former smoker How long has it been since you last smoked? 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: no alcohol use: no drug use: yes cocaine quit 199 4 Coffee/Tea/Soda: yes Coffee, 3, cups per day, Soda, 2, cups per day Marital Status experience no Living with alone smokers in household yes quit 9 Problems Problem Type SNOMED Code ICD Code Onset Dates Problem Status W/U Status Risk Notes Problem Shoulder joint pain (578688288) Joint pain, shoulder (719.41) Active confirmed Problem Disorder of tendon of shoulder region (58256715) Disorder of tendon of shoulder region NOS (726.10) Active confirmed Problem Bursitis of hip (45869607) Bursitis of hip (726.5) Active confirmed L Problem Osteopenia (519902017) Osteopenia (733.90) Active confirmed Problem Bronchitis (93708426) Bronchitis NOS (490) Active confirmed Problem Rheumatoid arthritis (52045034) Rheumatoid arthritis (714.0) Active confirmed Problem Cough (28483423) Cough (786.2) Active confirmed Problem Arthralgia of the pelvic region and thigh (366829949) Joint pain, hip or thigh (719.45) Active confirmed Problem Medication monitoring (984106216) Medication monitoring (V58.69) Active confirmed Problem Osteoarthritis (564499016) osteoarthritis (715.90) Active confirmed Problem Low back pain (593631146) Low back pain (M54.5) Active confirmed Problem Medication monitoring (738272518) Medication monitoring encounter (Z51.81) Active confirmed Problem Inflammation of bursa of olecranon (556709427) Olecranon bursitis, right elbow (M70.21) Active confirmed Problem Lumbar radiculopathy (194554386) Lumbar back pain with radiculopathy affecting left lower extremity (M54.17) Active confirmed Problem Abscess (74021534) Abscess (L02.91) Active confirmed Problem Rheumatoid arthritis (32619269) Rheumatoid arthritis involving multiple sites with positive rheumatoid factor (M05.79) Active confirmed Problem Contracture of joint of hand (11489683) Contracture of joint of finger of right hand (M24.541) Active confirmed Problem Elevated C-reactive protein (630333212699035) Elevated C-reactive protein (R79.82) Active confirmed Problem Disorder of soft tissue (64317224) Swelling of right upper extremity (M79.89) Active confirmed Problem Primary osteoarthritis (561907645) Primary osteoarthritis involving multiple joints (M89.49) Active confirmed Plan Of Treatment Pending Test Test Name Order Date AST ( SGOT) 02/07/2021 ALT(DO NOT USE) 02/07/2021 AST ( SGOT) 06/17/2021 ALT(DO NOT USE) 06/17/2021 AST ( SGOT) 09/16/2021 ALT(DO NOT USE) 09/16/2021 AST ( SGOT) 01/16/2022 ALT(DO NOT USE) 01/16/2022 Future Test Test Name Order Date CRYSTAL ID 02/02/2018 Cell Count and Differential, Synovial Fl uid(QUEST) 02/02/2018 Culture Aerobic and Anaerobic/Body Fluid /Abscess(QUEST) 02/02/2018 ESR 06/02/2022 ALBUMIN 06/02/2022 AST ( SGOT) 06/02/2022 CREATININE 06/02/2022 CRP 06/02/2022 CBC W/ AUTOMATED DIFF 06/02/2022 ELECTROLYTES 06/02/2022 ALT (SGPT) 06/02/2022 ESR 09/30/2022 ALBUMIN 09/30/2022 AST ( SGOT) 09/30/2022 CREATININE 09/30/2022 CRP 09/30/2022 CBC W/ AUTOMATED DIFF 09/30/2022 ELECTROLYTES 09/30/2022 ALT (SGPT) 09/30/2022 Insurance Providers Payer Name Payer Address Payer Phone Subscriber Number Group Number Insured Name Patient Relationship to Insured Coverage Start Date Coverage End Date [employer] [facility] [address] [facility] [place] [phone] [id number] VERNELL FARLEY Self - patient is the insured Medications Administered Medication Instructions Date of Administration Dosage Notes Triamcinolone Acetonide, mul ti-dose vial, 06/05/2019 60 mg Triamcinolone Acetonide, mul ti-dose vial, 09/16/2021 60 mg Triamcinolone Acetonide, sin gle dose vial, 10 mg 02/13/2013 60 mg Medical (General) History Medical History History ICD Code fibromyalgia Lung disease ? due to MTX Dr Green pleurisy pneumonia rheumatoid arthritis med failures gold, MTX, enbrel eczema Arthritis Surgical History Surgery Date(Month/Year) surgery on right foot 12/2018 hands throat 04/2001 foot 12/23/10 Hospitalization History Reason Date(Month/Year) pneumonia sob (eulalio) 07/2018
--- OUTSIDE RECORDS SUMMARY | 2025-07-02 19:20 | XMS_ITS | Clinical Summary ---
Author Organization [facility] ity Address [address] [place] [address] Care Team Providers Care Irrigation Specialist Name Role Phone Unavailable Primary Care Provider Unavailabl e Social History Tobacco Use Types Packs/Day Years Used Date Smoking Tobacco: Never Assessed Comments Unknown Sex and Gender Information Value Date Recorded Sex Assigned at Not on file Legal Sex Female 2:05 PM EST Gender Identity Not on file Sexual Orientation Not on file Plan of Treatment Health Maintenance Due Date Last Done Comments Breast Cancer Screening 1955 DTaP,Tdap,and Td Vaccines (1 - Tdap) 11/11/1975 Pneumococcal Vaccine: 50+ Ye ars (1 of 1 - PCV) 2006 Zoster Vaccines (1 of 2) 2006 Depression Screening 07/19/2024 COVID-19 Vaccine (1 - 2024-2 6 season) 2025 Influenza Vaccine (#1) 2025 RSV Immunization Adult Patie nts (1 - 1-dose 75+ series) 11/11/2031 HIB Vaccines Aged Out No longer eligi ble based on patient's age to complete this topic HPV Vaccines Aged Out No longer eligi ble based on patient's age to complete this topic Hepatitis A Vaccines Aged Out No long er eligible based on patient's age to complete this topic Hepatitis B Vaccines Aged Out No long er eligible based on patient's age to complete this topic IPV Vaccines Aged Out No longer eligi ble based on patient's age to complete this topic MMR Vaccines Aged Out No longer eligi ble based on patient's age to complete this topic Meningococcal ACWY Vaccine Aged Out N o longer eligible based on patient's age to complete this topic Meningococcal B Vaccine Aged Out No l onger eligible based on patient's age to complete this topic RSV Immunization Patients Un radha 20 months Aged Out No longer eligible b ased on patient's age to complete this topic Varicella Vaccines Aged Out No longer eligible based on patient's age to complete this topic
--- OUTSIDE RECORDS SUMMARY | 2025-07-02 19:21 | XMS_ITS | Patient Health Record ---
Author Organization [facility] Keo anisha Kale Address [address] [place] [address] Care Team Providers Care Risk Control Director Name Role Phone Annmarie BRUCE, Khang Primary Care Provider UnavailKristen Davis Unavailable [phone] Allergies Allergen (clinical drug ingredient) Drug/Non Drug [...] W/U Status Risk Notes Problem Plantar wart (55053348) Plantar wart (B07.0) Active confirmed Problem Pressure injury of right foot stage I (disorder) (3933607354348 02) Pressure injury of right foot, stage 1 (L89.891) Active confirmed Vital Signs Blood pressure diastolic 80 mm Hg 05/07/2025 Height 5ft1.5in in 05/07/2025 Blood pressure systolic 125 mm Hg 05/07/2025 Weight 110 lbs 05/07/2025 BMI 20.45 kg/m2 05/07/2025 Procedures Procedure Date Ordered Date Performed Result Body Sit e 27456-Euql Destruction, 1-14 02/08/2025 N/A 11446- Debride <25 sq cm 05/07/2025 N/A 51815 I&D ABSCESS- SIMPLE,SINGLE 05/07/2025 N/A Encounters Encounter Location Date Provider Diagnosis [facility] [address] 02/08/2025 Kristen Black Left foot pain M79.6 72 and Plantar wart B07.0 [facility] [address] 05/07/2025 Kristen Black Onychomycosis B35.1 ; Metatarsalgia, [...] abscess of toe of right foot L03.[address] [address] 05/30/2025 Kristen Black Assessments Encounter Date Diagnosis (ICD Code) Assessment [...] X ray : Foot, right 3V 05/19/2022 88205-Jahj Destruction, 1-14 02/08/2025 29900- Debride <25 sq cm 05/07/2025 10674 I&D ABSCESS- SIMPLE,SINGLE 025 Next Appt Details Provider Name:Kristen Meza , 09/04/2025 02:45:00 PM, [address] [facility], [place], [address], Insurance Providers Payer Name Payer Address Payer Phone Subscriber Number Group Number Insured Name Patient Relationship to Insured Coverage Start Date Coverage End Date [employer] [address] [facility] [place] [id number] [phone] [id number] Lilliana Ma Self - patient is the [...] Met Head resection 4th right, Ten/Cap ri ght 10/28/2022
== END 2025-07-02 13:23 | disposition home or self-care (01) ==
LOC: HO.XRAY 13:22
PROVIDERS: PCP Internal Medicine; Visit Provider Internal Medicine
DX: J18.8 Other pneumonia, unspecified organism (principal)
CPT/HCPCS: 71046

== ENCOUNTER → 2025-07-02 13:33 | Outpatient (BNV) | payer MEDICARE, SELFPAY | PROVIDERS: PCP Internal Medicine; Visit Provider Radiology Diagnostic Radiology | DX: J18.9 Pneumonia, unspecified organism (principal); J44.9 Chronic obstructive pulmonary disease, unspecified; J98.4 Other disorders of lung; R91.8 Other nonspecific abnormal finding of lung field; K44.9 Diaphragmatic hernia without obstruction or gangrene | CPT/HCPCS: 71046 ==